=== PATIENT | female | born 1985 | race African-American/Black ===

== ENCOUNTER 2016-10-21 15:25 | Emergency (ER) | payer SELFPAY ==
[~2016-10-21] VITALS: Ht 162.6 cm; Wt 65.8 kg
--- NOTE | 2016-10-21 15:40 | ED Cough/URI ---
General Stated Complaint: COUGH/SOB Source: patient Exam Limitations: no limitations History of Present Illness Time seen by provider: 15:38 Initial Comments To ER with a cough and shortness of breath. She does not have fevers. This is been ongoing for the past few days. She just moved here from [place] and forgot her medications at home. She normally takes prednisone on an as-needed basis, she states, in addition to albuterol plus ipratropium per her nebulizer. She continues to smoke cigars. Timing/Duration: just prior to arrival Severity/Quality: productive cough Associated Symptoms: cough Allergies and Home Medications Allergies Coded Allergies: No Known Drug Allergies (Unverified , 10/21/16) Home Medications Ipratropium/Albuterol Sulfate 3 Ml Ampul.neb, 3 ML IH Q4H PRN for SHORTNESS OF BREATH, (Reported) Constitutional: see HPI, No chills, No fever EENTM: see HPI Respiratory: see HPI, cough, short of breath, wheezing Cardiovascular: no symptoms reported Genitourinary: no symptoms reported Musculoskeletal: no symptoms reported Skin: no symptoms reported Psychiatric/Neurological: No Symptoms Reported Hematologic/Lymphatic: No Symptoms Reported Immunological/Allergic: no symptoms reported Past Xqnawcp-Rsekxh-Nnjnhz Hx Patient Social History Recent Foreign Travel: No Contact w/Someone Who Travel: No Physical Exam Vital Signs Vital Sign - Last 12Hours 10/21/16 15:30 Temp 98.1 Pulse 128 Resp 36 B/P (MAP) 139/98 Pulse Ox 92 O2 Delivery Room Air Capillary Refill : General Appearance: WD/WN, no apparent distress, thin Eyes: Bilateral Eye EOMI, Bilateral Eye Normal Inspection, Bilateral Eye PERRL HEENT: PERRL/EOMI, normal ENT inspection Neck: non-tender, full range of motion Respiratory: no respiratory distress, no accessory muscle use, decreased breath sounds, wheezing Cardiovascular: no murmur, tachycardia Gastrointestinal: normal bowel sounds, non tender, soft Extremities: normal range of motion, non-tender, normal inspection, no pedal edema Neurologic/Psychiatric: alert, normal mood/affect, oriented x 3 Skin: normal color, warm/dry Progress/Results/Core Measures Results/Orders My Orders Orders - SOFIA WARD APRN Albuterol/Ipra Inhalation Soln (Duoneb I (10/21/16 15:45) Prednisone Tablet (Deltasone Tablet) (10/21/16 15:45) Svn Sm Volume Nebulizer Rt-Rfs (10/21/16 15:35) Albuterol/Ipra Inhalation Soln (Duoneb I (10/21/16 15:45) Svn Sm Volume Nebulizer Rt-Rfs (10/21/16 15:38) Medications Given in ED Current Medications Medications Dose Ordered Sig/Delvis Route Start Time Stop Time Status Last Admin Dose Admin Albuterol/ Ipratropium 3 ml ONCE ONCE INH 10/21/16 15:45 10/21/16 15:46 DC 10/21/16 15:48 3 ML Vital Signs/I&O Vital Sign - Last 12Hours 10/21/16 10/21/16 15:30 15:49 Temp 98.1 Pulse 128 Resp 36 B/P (MAP) 139/98 Pulse Ox 92 94 O2 Delivery Room Air Room Air Departure Communication Progress Notes She states that she does have a nebulizer with her. Impression Impression: Primary Impression: Asthma Disposition: 01 HOME, SELF-CARE Condition: Stable Departure-Patient Inst. Decision time for Depature: 15:54 Referrals: NO,LOCAL PHYSICIAN (PCP/Family) Primary Care Physician Patient Instructions: Asthma, Adult (DC) Add. Discharge Instructions: 1. Medication as directed 2. See your doctor next week Scripts Prednisone (Prednisone) 20 Mg Tab 40 MG PO DAILY, #6 TAB Prov: SOFIA WARD APRN 10/21/16 Ipratropium [place] (Ipratropium [place]) 0.2 Mg/1 Ml Solution 0.2 MG IH Q4H Y for WHEEZING, #25 EA Prov: SOFIA WARD APRN 10/21/16 Albuterol Sulfate (Albuterol Sulfate) 2.5 Mg/3 Ml Vial.neb 2.5 MG IH Q4H Y for WHEEZING, #25 EA Prov: SOFIA WARD APRN 10/21/16 SOFIA WARD APRN Oct 21, 2016 15:40
[2016-10-21] MEDS ORDERED: IPRA3AMP IH (15:44)
[2016-10-21] MEDS ORDERED: predniSONE 20 MG TAB PO ONE (15:45)
[2016-10-21] MEDS ORDERED: RT-ALBUTEROL/IPRATROPIUM 3 ML (DUONEB) VIAL INH ONE ×2 (15:45)
[2016-10-21] MEDS ORDERED: PRD20T PO (15:56)
[2016-10-21] MEDS ORDERED: ALBU2.5V4 IH (15:56)
[2016-10-21] MEDS ORDERED: IPRA0.2S51 IH (15:56)
[2016-10-21 16:36] VITALS: BP 122/72
== END 2016-10-21 16:35 | disposition home or self-care (01) ==
LOC: ER 15:28
DX: J45.909 Unspecified asthma, uncomplicated (principal); F17.290 Nicotine dependence, other tobacco product, uncomplicated
CPT/HCPCS: 94640; 99283

== ENCOUNTER 2016-11-10 10:19 | Emergency (ER) | payer OTHER ==
[~2016-11-10] VITALS: Ht 162.6 cm; Wt 63.5 kg
[~2016-11-10 10:19] MED LIST: ALBU2.5V4 IH; IPRA0.2S51 IH; IPRA3AMP IH; PRD20T PO; RT-ALBUTEROL/IPRATROPIUM 3 ML (DUONEB) VIAL ONE
[2016-11-10] MEDS ORDERED: RT-IPRATROPIUM (ATROVENT) 0.5MG/2.5ML AMP IH ONE ×2 (10:29→10:45)
[2016-11-10] MEDS ORDERED: RT-ALBUTEROL SULF 2.5 MG/3 ML PRE-MIX VIAL ONE (10:29)
[2016-11-10] MEDS ORDERED: methylPREDNISolone 125 MG (Solu-MEDROL) VIAL ONE (10:30)
[2016-11-10] MEDS ORDERED: methylPREDNISolone 125 MG (Solu-MEDROL) VIAL IVP ONE (10:45)
[2016-11-10] MEDS ORDERED: RT-ALBUTEROL SULF 2.5 MG/3 ML PRE-MIX VIAL IH ONE (10:45)
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
[2016-11-10 13:05] LABS: BASOPHILS # (AUTO) 0.1 10^3/uL (0.0-0.1); BASOPHILS % (AUTO) 1 % (0-10); EOSINOPHILS # (AUTO) 0.6 10^3/uL (0.0-0.3); EOSINOPHILS % (AUTO) 8 % (0-10); LYMPHOCYTES # (AUTO) 2.5 X 10^3 (1.0-4.0); LYMPHOCYTES % (AUTO) 31 % (12-44); MEAN CORPUSCULAR HEMOGLOBIN 25 PG (25-34); MEAN CORPUSCULAR HGB CONC 32 G/DL (32-36); MEAN CORPUSCULAR VOLUME 79 FL (80-99); MEAN PLATELET VOLUME 9.6 FL (7.4-10.4); MONOCYTES # (AUTO) 0.6 X 10^3 (0.0-1.0); MONOCYTES % (AUTO) 7 % (0-12); NEUTROPHILS # (AUTO) 4.2 X 10^3 (1.8-7.8); NEUTROPHILS % (AUTO) 53 % (42-75); PLATELET COUNT 553 10^3/uL (130-400); RED BLOOD COUNT 4.63 10^6/uL (4.35-5.85); RED CELL DISTRIBUTION WIDTH 16.3 % (10.0-14.5)
[2016-11-10 13:19] LABS: ALANINE AMINOTRANSFERASE 14 U/L (0-55); ALBUMIN 3.8 GM/DL (3.2-4.5); ANION GAP 15 MMOL/L (5-14); ASPARTATE AMINO TRANSFERASE 24 U/L (5-34); BILIRUBIN,TOTAL 0.4 MG/DL (0.1-1.0); BLOOD UREA NITROGEN 8 MG/DL (7-18); BUN/CREATININE RATIO 12; CALCIUM 9.2 MG/DL (8.5-10.1); CARBON DIOXIDE 17 MMOL/L (21-32); CHLORIDE 107 MMOL/L (98-107); CREATININE SERUM 0.68 MG/DL (0.60-1.30); GFR ESTIMATED > 60; GLUCOSE 79 MG/DL (70-105); POTASSIUM 4.7 MMOL/L (3.6-5.0); SODIUM 139 MMOL/L (135-145); TOTAL PROTEIN 7.2 GM/DL (6.4-8.2)
--- NOTE | 2016-11-10 13:25 | Diagnostic Imaging Report ---
EXAMINATION: Chest radiograph, portable AP view. DATE: November 10, 2016 at 1259 hours. INDICATION: 31-year-old female, chest tightness, shortness of breath, cough. COMPARISON: None. FINDINGS: There are chronic appearing deformities of left-sided ribs. Heart size and mediastinal contours are unremarkable. There is no identified pneumothorax. There is no large pleural effusion. There are streaky opacities overlying the medial left lung base. There does appear to be a deformity of the right seventh rib of uncertain exact age. IMPRESSION: 1. Chronic appearing left-sided rib deformities. 2. Deformity of the right seventh rib of uncertain exact age. Recommend correlation for focal tenderness. 3. Nonspecific streaky opacities in the left medial lung base which may relate to scarring, atelectasis, or other alveolar consolidative processes. Comparison with prior imaging if available may be helpful. This is of uncertain exact chronicity. Dictated by: Dictated on workstation # [id number]
[2016-11-10] MEDS ORDERED: PRD20T PO (14:10)
[2016-11-10] MEDS ORDERED: IPRA3AMP IH (14:10)
[2016-11-10] MEDS ORDERED: ALBU2.5V4 IH (14:10)
[2016-11-10] MEDS ORDERED: predniSONE 20 MG TAB PO ONE (14:15)
[2016-11-10] MEDS ORDERED: RT-ALBUTEROL/IPRATROPIUM 3 ML (DUONEB) VIAL INH ONE (14:15)
[2016-11-10 15:17] VITALS: BP 131/80
== END 2016-11-10 15:16 | disposition home or self-care (01) ==
LOC: EDUNIT# 10:19 → ER 10:21
DX: J45.901 Unspecified asthma with (acute) exacerbation (principal); J44.9 Chronic obstructive pulmonary disease, unspecified; F17.290 Nicotine dependence, other tobacco product, uncomplicated; Z87.828 Personal history of other (healed) physical injury and trauma
CPT/HCPCS: 36415; 71010; 80053; 84703; 85025; 94640; 96374; 99283

== ENCOUNTER 2016-11-11 20:53 | Observation (INO) | payer OTHER ==
[~2016-11-11] VITALS: Ht 162.6 cm; Wt 63.5 kg
[~2016-11-11 20:53] MED LIST changes: -RT-ALBUTEROL/IPRATROPIUM 3 ML (DUONEB) VIAL ONE
[2016-11-11] MEDS ORDERED: methylPREDNISolone 125 MG (Solu-MEDROL) VIAL IV STA (21:04)
[2016-11-11] MEDS ORDERED: RT-ALBUTEROL SULF 2.5 MG/3 ML PRE-MIX VIAL ONE (21:05)
[2016-11-11] MEDS ORDERED: RT-ALBUTEROL SULF 2.5 MG/3 ML PRE-MIX VIAL INH STA ×2 (21:09→23:50)
[2016-11-11] MEDS ORDERED: RT-ALBUTEROL/IPRATROPIUM 3 ML (DUONEB) VIAL INH ONE (21:15)
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
[2016-11-11] MEDS: MAGNESIUM 1 GM/100 ML IVPB 100 ML IV SCH ×2 (22:45→22:56)
[2016-11-11] MEDS ORDERED: NS IV 1000 ML 1,000 ML IV ONE (23:50)
[2016-11-11 23:58] LABS: BASOPHILS # (AUTO) 0.1 10^3/uL (0.0-0.1); BASOPHILS % (AUTO) 0 % (0-10); EOSINOPHILS # (AUTO) 0.4 10^3/uL (0.0-0.3); EOSINOPHILS % (AUTO) 2 % (0-10); LYMPHOCYTES # (AUTO) 4.7 X 10^3 (1.0-4.0); LYMPHOCYTES % (AUTO) 32 % (12-44); MEAN CORPUSCULAR HEMOGLOBIN 25 PG (25-34); MEAN CORPUSCULAR HGB CONC 32 G/DL (32-36); MEAN CORPUSCULAR VOLUME 79 FL (80-99); MEAN PLATELET VOLUME 9.4 FL (7.4-10.4); MONOCYTES # (AUTO) 0.8 X 10^3 (0.0-1.0); MONOCYTES % (AUTO) 5 % (0-12); NEUTROPHILS # (AUTO) 8.9 X 10^3 (1.8-7.8); NEUTROPHILS % (AUTO) 60 % (42-75); PLATELET COUNT 614 10^3/uL (130-400); RED CELL DISTRIBUTION WIDTH 16.4 % (10.0-14.5); WHITE BLOOD COUNT 14.7 10^3/uL (4.3-11.0)
[2016-11-12 00:12] LABS: ALANINE AMINOTRANSFERASE 13 U/L (0-55); ALBUMIN 3.9 GM/DL (3.2-4.5); ANION GAP 14 MMOL/L (5-14); ASPARTATE AMINO TRANSFERASE 15 U/L (5-34); BILIRUBIN,TOTAL 0.1 MG/DL (0.1-1.0); BLOOD UREA NITROGEN 11 MG/DL (7-18); BUN/CREATININE RATIO 15; CARBON DIOXIDE 19 MMOL/L (21-32); CHLORIDE 108 MMOL/L (98-107); CREATININE SERUM 0.74 MG/DL (0.60-1.30); GFR ESTIMATED > 60; GLUCOSE 109 MG/DL (70-105); MAGNESIUM 1.8 MG/DL (1.8-2.4); POTASSIUM 3.7 MMOL/L (3.6-5.0); SODIUM 141 MMOL/L (135-145); hs C REACTIVE PROTEIN 2.68 MG/DL (0.00-0.50)
[2016-11-12 00:29] LABS: BAND NEUTROPHILS 1 %; BASOPHILS % (MANUAL) 0 %; EOSINOPHILS % (MANUAL) 0 %; LYMPHOCYTES % (MANUAL) 28 %; NEUTROPHILS % (MANUAL) 65 %; REACTIVE LYMPHOCYTES 4 %
[2016-11-12 01:15] VITALS: BP 147/75
[2016-11-12] MEDS ORDERED: CATHETER FLUSH 10 ML SYR IV PRN (01:30)
[2016-11-12] MEDS ORDERED: ONDANSETRON 4 MG/2 ML (SDV) Z0FRAN IV PRN (01:30)
[2016-11-12] MEDS ORDERED: ACETAMINOPHEN 500 MG TAB (TYLENOL) PO PRN (01:30)
[2016-11-12] MEDS: NS IV 1000 ML 1,000 ML IV SCH ×2 (01:36→14:47)
[2016-11-12] MEDS ORDERED: RT-ALBUTEROL/IPRATROPIUM 3 ML (DUONEB) VIAL ONE (01:39)
[2016-11-12] MEDS: methylPREDNISolone 125 MG (Solu-MEDROL) VIAL IV SCH ×4 (02:57→21:44)
[2016-11-12] MEDS ORDERED: RT-ALBUTEROL/IPRATROPIUM 3 ML (DUONEB) VIAL INH PRN (03:15)
[2016-11-12 04:00] VITALS: BP 109/58
[2016-11-12] MEDS: CATHETER FLUSH 10 ML SYR IV SCH ×3 (06:08→21:44)
[2016-11-12 06:27] LABS: BASOPHILS % (AUTO) 0 % (0-10); EOSINOPHILS % (AUTO) 0 % (0-10); LYMPHOCYTES # (AUTO) 0.5 X 10^3 (1.0-4.0); LYMPHOCYTES % (AUTO) 5 % (12-44); MEAN CORPUSCULAR HEMOGLOBIN 25 PG (25-34); MEAN CORPUSCULAR HGB CONC 31 G/DL (32-36); MEAN CORPUSCULAR VOLUME 79 FL (80-99); MEAN PLATELET VOLUME 9.2 FL (7.4-10.4); MONOCYTES # (AUTO) 0.1 X 10^3 (0.0-1.0); MONOCYTES % (AUTO) 1 % (0-12); NEUTROPHILS # (AUTO) 10.8 X 10^3 (1.8-7.8); NEUTROPHILS % (AUTO) 95 % (42-75); PLATELET COUNT 551 10^3/uL (130-400); RED BLOOD COUNT 3.97 10^6/uL (4.35-5.85); RED CELL DISTRIBUTION WIDTH 16.3 % (10.0-14.5); WHITE BLOOD COUNT 11.4 10^3/uL (4.3-11.0)
[2016-11-12 06:46] LABS: ALANINE AMINOTRANSFERASE 15 U/L (0-55); ALBUMIN 3.7 GM/DL (3.2-4.5); ANION GAP 15 MMOL/L (5-14); ASPARTATE AMINO TRANSFERASE 14 U/L (5-34); BILIRUBIN,TOTAL 0.1 MG/DL (0.1-1.0); BLOOD UREA NITROGEN 9 MG/DL (7-18); BUN/CREATININE RATIO 13; CALCIUM 8.6 MG/DL (8.5-10.1); CARBON DIOXIDE 16 MMOL/L (21-32); CHLORIDE 109 MMOL/L (98-107); GFR ESTIMATED > 60; GLUCOSE 210 MG/DL (70-105); SODIUM 140 MMOL/L (135-145); TOTAL PROTEIN 6.6 GM/DL (6.4-8.2)
[2016-11-12] MEDS: RT-ALBUTEROL/IPRATROPIUM 3 ML (DUONEB) VIAL INH SCH ×5 (06:53→22:34)
[2016-11-12] MEDS: RT-BUDESONIDE NEBS 0.5 MG/2ML (PULMICORT) AMP INH SCH ×2 (06:55→22:34)
[2016-11-12 07:53] VITALS: BP 110/66
[2016-11-12] MEDS ORDERED: IBUP-30 PO (08:39)
--- NOTE | 2016-11-12 08:47 | Diagnostic Imaging Report ---
INDICATION: Shortness of breath. Asthma. COMPARISON: 11/10/2016. FINDINGS: Chronic deformity of the left ribs is again noted. The heart is not enlarged. The lungs are well-aerated. There does not appear to be significant air trapping. There are no consolidated infiltrates. No segmental atelectasis is noted. No hilar adenopathy. No pneumothorax or pleural effusion. IMPRESSION: 1. Chronic rib changes on the left. 2. No significant change has occurred since the previous exam. Dictated by: Dictated on workstation # [id number]
[2016-11-12] MEDS ORDERED: IPRA0.2S51 IH (09:27)
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
[2016-11-12] MEDS: guaiFENesin/DM (ROBITUSSIN DM) 10 ML UDC PO PRN (12:34)
[2016-11-12 12:36] VITALS: BP 117/63
[2016-11-12 15:49] VITALS: BP 125/78
[2016-11-12 19:38] VITALS: BP 128/64
[2016-11-13 00:44] VITALS: BP_SYST 122; BP_SYST 139; BP_DIAS 61; BP_DIAS 71
[2016-11-13] MEDS: RT-ALBUTEROL/IPRATROPIUM 3 ML (DUONEB) VIAL INH SCH ×6 (02:58→21:31)
[2016-11-13 04:00] VITALS: BP 100/54
[2016-11-13] MEDS: NS IV 1000 ML 1,000 ML IV SCH (04:17)
[2016-11-13] MEDS: CATHETER FLUSH 10 ML SYR IV SCH ×3 (05:07→22:16)
[2016-11-13] MEDS: methylPREDNISolone 125 MG (Solu-MEDROL) VIAL IV SCH ×3 (05:07→22:16)
[2016-11-13 07:37] VITALS: BP 117/63
[2016-11-13] MEDS: RT-BUDESONIDE NEBS 0.5 MG/2ML (PULMICORT) AMP INH SCH ×2 (07:58→21:31)
--- NOTE | 2016-11-13 08:43 | Progress Note-Hospitalist ---
Subjective HPI/CC On Admission Date Seen by Provider: Nov 13, 2016 Time Seen by Provider: 08:30 Mrs. Mcdaniels 31-year-old white female with asthma who originally presented emergency room on the with a 2 day history of increased She denied any sore throat symptoms chills fever or sputum production. She was given a prednisone taper and Combivent inhaler and discharged after improvement. She did well until last night when she had paroxysms of cough with wheezing and shortness of breath. She presented to the emergency r in moderate respiratory distress. After IV Solu-Medrol and a prolonged beta agonist treatment she is feeling better but still has significant wheezing She has not been able to afford inhaler therapy and continues to smoke one cigar daily. She has a previous 42-juvh-lolx smoking history but quit cigarettes a year ago. Past exacerbations have not required ventilatory support Subjective/Events-last exam she reports she is breathing easier without chest pain. She's had no sputum production and said no chills or fever. Objective Exam Vital Signs Vital Sign - Last 12Hours 11/11/16 11/11/16 11/12/16 21:00 21:17 06:53 Temp 98.9 Pulse 122 Resp 32 B/P (MAP) 133/97 Pulse Ox 98 O2 Delivery Nasal Cannula O2 Flow Rate 2.00 FiO2 35 Capillary Refill : Less Than 3 Seconds General Appearance: No Apparent Distress, WD/WN Respiratory: No Accessory Muscle Use, No Respiratory Distress, Other (diffuse inspiratory and expiratory wheezing is noted still) Cardiovascular: Regular Rate, Rhythm, No Edema, No Gallop, No JVD, No Murmur Assessment/Plan Assessment and Plan Assess & Plan/Chief Complaint 1. Acute asthma exacerbation aggravated by tobaccoism without evidence for infection at this time. Continue IV Solu-Medrol and bronchodilator therapy. There has been some clinical improvement over the past 24 hours. KAILEE WAITE MD Nov 13, 2016 08:43
[2016-11-13 12:00] VITALS: BP 117/59
[2016-11-13] MEDS: guaiFENesin/DM (ROBITUSSIN DM) 10 ML UDC PO PRN ×2 (14:15→22:19)
[2016-11-13 16:00] VITALS: BP 115/55
[2016-11-14] VITALS: BP 123/71
[2016-11-14] MEDS: RT-ALBUTEROL/IPRATROPIUM 3 ML (DUONEB) VIAL INH SCH ×6 (02:29→22:24)
[2016-11-14] MEDS: methylPREDNISolone 125 MG (Solu-MEDROL) VIAL IV SCH ×4 (05:52→22:18)
[2016-11-14] MEDS: CATHETER FLUSH 10 ML SYR IV SCH ×4 (05:53→22:18)
[2016-11-14] MEDS: RT-BUDESONIDE NEBS 0.5 MG/2ML (PULMICORT) AMP INH SCH ×2 (06:57→19:07)
[2016-11-14 08:00] VITALS: BP 120/68
--- NOTE | 2016-11-14 08:43 | Progress Note-Hospitalist ---
Subjective HPI/CC On Admission Date Seen by Provider: Nov 14, 2016 Time Seen by Provider: 08:45 Mrs. Mcdaniels 31-year-old white female with asthma who originally presented emergency room on the with a 2 day history of increased She denied any sore throat symptoms chills fever or sputum production. She was given a prednisone taper and Combivent inhaler and discharged after improvement. She did well until last night when she had paroxysms of cough with wheezing and shortness of breath. She presented to the emergency r in moderate respiratory distress. After IV Solu-Medrol and a prolonged beta agonist treatment she is feeling better but still has significant wheezing She has not been able to afford inhaler therapy and continues to smoke one cigar daily. She has a previous 29-arov-srjn smoking history but quit cigarettes a year ago. Past exacerbations have not required ventilatory support Subjective/Events-last exam Mrs. Mcdaniels ports less shortness of breath but still has significant wheezing and intermittent cough nonproductive. She denies chills or fever. Objective Exam Vital Signs Vital Sign - Last 12Hours 11/11/16 11/11/16 11/12/16 21:00 21:17 06:53 Temp 98.9 Pulse 122 Resp 32 B/P (MAP) 133/97 Pulse Ox 98 O2 Delivery Nasal Cannula O2 Flow Rate 2.00 FiO2 35 Capillary Refill : Less Than 3 Seconds General Appearance: No Apparent Distress Respiratory: No Accessory Muscle Use, No Respiratory Distress, Other ( Increased air movement but they're still significant inspiratory and expiratory wheezing without stridor.) Cardiovascular: Regular Rate, Rhythm, No Edema, No Gallop, No JVD, No Murmur Assessment/Plan Assessment and Plan Assess & Plan/Chief Complaint 1. Acute asthma exacerbation aggravated by tobaccoism without evidence for infection at this time. Continue IV Solu-Medrol and bronchodilator therapy. There has been some clinical improvement over the past 24 hours but the patient still has significant wheezing. KAILEE WAITE MD Nov 14, 2016 08:43
[2016-11-14] MEDS: guaiFENesin/DM (ROBITUSSIN DM) 10 ML UDC PO PRN (13:43)
[2016-11-14 16:00] VITALS: BP 117/61
[2016-11-15] VITALS: BP 102/62
[2016-11-15] MEDS: RT-ALBUTEROL/IPRATROPIUM 3 ML (DUONEB) VIAL INH SCH ×6 (02:00→20:35)
[2016-11-15] MEDS: methylPREDNISolone 125 MG (Solu-MEDROL) VIAL IV SCH ×3 (05:24→21:38)
[2016-11-15] MEDS: CATHETER FLUSH 10 ML SYR IV SCH ×3 (05:24→21:39)
[2016-11-15] MEDS: RT-BUDESONIDE NEBS 0.5 MG/2ML (PULMICORT) AMP INH SCH ×2 (06:49→18:25)
[2016-11-15 08:00] VITALS: BP 106/55
--- NOTE | 2016-11-15 13:07 | Progress Note-Hospitalist ---
Subjective HPI/CC On Admission Date Seen by Provider: Nov 15, 2016 Time Seen by Provider: 12:30 Mrs. Mcdaniels 31-year-old white female with asthma who originally presented emergency room on the with a 2 day history of increased She denied any sore throat symptoms chills fever or sputum production. She was given a prednisone taper and Combivent inhaler and discharged after improvement. She did well until last night when she had paroxysms of cough with wheezing and shortness of breath. She presented to the emergency r in moderate respiratory distress. After IV Solu-Medrol and a prolonged beta agonist treatment she is feeling better but still has significant wheezing She has not been able to afford inhaler therapy and continues to smoke one cigar daily. She has a previous 60-kzjy-sfwk smoking history but quit cigarettes a year ago. Past exacerbations have not required ventilatory support Subjective/Events-last exam feeling better but still has significant wheezing. Cough intermittently productive now of clear sputum no blood noted. Objective Exam Vital Signs Vital Sign - Last 12Hours 11/11/16 11/11/16 11/12/16 21:00 21:17 06:53 Temp 98.9 Pulse 122 Resp 32 B/P (MAP) 133/97 Pulse Ox 98 O2 Delivery Nasal Cannula O2 Flow Rate 2.00 FiO2 35 Capillary Refill : Less Than 3 Seconds General Appearance: No Apparent Distress, WD/WN Respiratory: No Accessory Muscle Use, No Respiratory Distress, Other ([employer] next 3 wheezing still noted with improved air movement) Cardiovascular: Regular Rate, Rhythm, No Edema, No Gallop, No JVD, No Murmur, Normal Peripheral Pulses Assessment/Plan Assessment and Plan Assess & Plan/Chief Complaint 1. Acute asthma exacerbation aggravated by tobaccoism without evidence for infection at this time. Continue IV Solu-Medrol and bronchodilator therapy. There has been some clinical improvement over the past 24 hours but the patient still has significant wheezing. KAILEE WAITE MD Nov 15, 2016 13:07
[2016-11-15] MEDS ORDERED: PRD20T PO (13:16)
[2016-11-15] MEDS ORDERED: FLUT1DIS28 IH (13:16)
[2016-11-15] MEDS ORDERED: IPRA0.2S51 IH (13:16)
[2016-11-15] MEDS: NICOTINE 21 MG (NICODERM) PATCH TD SCH (15:49)
[2016-11-15 16:17] VITALS: BP 125/76
[2016-11-15] MEDS: guaiFENesin/DM (ROBITUSSIN DM) 10 ML UDC PO PRN (21:43)
[2016-11-15 23:40] VITALS: BP 153/91
[2016-11-16] MEDS: RT-ALBUTEROL/IPRATROPIUM 3 ML (DUONEB) VIAL INH SCH ×5 (02:09→20:09)
[2016-11-16] MEDS: methylPREDNISolone 125 MG (Solu-MEDROL) VIAL IV SCH ×3 (05:49→21:17)
[2016-11-16] MEDS: CATHETER FLUSH 10 ML SYR IV SCH ×3 (06:41→21:26)
[2016-11-16] MEDS: RT-BUDESONIDE NEBS 0.5 MG/2ML (PULMICORT) AMP INH SCH ×2 (06:54→20:09)
[2016-11-16 08:26] VITALS: BP 129/71
[2016-11-16] MEDS: NICOTINE 21 MG (NICODERM) PATCH TD SCH ×2 (09:20→09:21)
--- NOTE | 2016-11-16 10:07 | Progress Note-Hospitalist ---
Subjective HPI/CC On Admission Date Seen by Provider: Nov 16, 2016 Time Seen by Provider: 10:00 Mrs. Mcdaniels 31-year-old white female with asthma who originally presented emergency room on the with a 2 day history of increased She denied any sore throat symptoms chills fever or sputum production. She was given a prednisone taper and Combivent inhaler and discharged after improvement. She did well until last night when she had paroxysms of cough with wheezing and shortness of breath. She presented to the emergency r in moderate respiratory distress. After IV Solu-Medrol and a prolonged beta agonist treatment she is feeling better but still has significant wheezing She has not been able to afford inhaler therapy and continues to smoke one cigar daily. She has a previous 63-gxkl-ixzc smoking history but quit cigarettes a year ago. Past exacerbations have not required ventilatory support Subjective/Events-last exam not coughing as much but still has significant wheezing. When asked about previous asthma exacerbations Of Taken As Long As 9 Days of Hospitalization before She Is Ready for Discharge. She's Had No Chills Fever or Purulent Sputum Production. Objective Exam Vital Signs Vital Sign - Last 12Hours 11/11/16 11/11/16 11/12/16 21:00 21:17 06:53 Temp 98.9 Pulse 122 Resp 32 B/P (MAP) 133/97 Pulse Ox 98 O2 Delivery Nasal Cannula O2 Flow Rate 2.00 FiO2 35 Capillary Refill : Less Than 3 Seconds General Appearance: No Apparent Distress, WD/WN Respiratory: No Accessory Muscle Use, No Respiratory Distress, Other (diffuse inspiratory and expiratory wheezing throughout persists) Cardiovascular: Regular Rate, Rhythm, No Edema, No Gallop, No JVD, No Murmur Assessment/Plan Assessment and Plan Assess & Plan/Chief Complaint 1. Acute asthma exacerbation aggravated by tobaccoism without evidence for infection at this time. Continue IV Solu-Medrol and bronchodilator therapy. There has been some clinical improvement over the past 24 hours but the patient still has significant wheezing. she is likely a slow steroid responder and was warned that it may be another protracted hospital stay as several of her other asthma exacerbations have been. She is not yet ready to consider Solu-Medrol taper. 2. 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 Will initiate Ambien 5 mg at at bedtime when necessary KAILEE WAITE MD Nov 16, 2016 10:07
[2016-11-16] MEDS ORDERED: ZOLPIDEM 5 MG (AMBIEN) TAB PO PRN (10:15)
[2016-11-16] MEDS: guaiFENesin/DM (ROBITUSSIN DM) 10 ML UDC PO PRN (13:10)
[2016-11-16 15:05] VITALS: BP 129/71
[2016-11-16 16:52] VITALS: BP 113/66
[2016-11-17] VITALS: BP 113/58
[2016-11-17] MEDS: RT-ALBUTEROL/IPRATROPIUM 3 ML (DUONEB) VIAL INH SCH ×3 (03:21→13:56)
[2016-11-17] MEDS: methylPREDNISolone 125 MG (Solu-MEDROL) VIAL IV SCH ×2 (05:25→14:03)
[2016-11-17] MEDS: CATHETER FLUSH 10 ML SYR IV SCH ×2 (05:25→14:03)
[2016-11-17] MEDS: RT-BUDESONIDE NEBS 0.5 MG/2ML (PULMICORT) AMP INH SCH (07:41)
[2016-11-17 08:43] VITALS: BP 141/97
[2016-11-17] MEDS ORDERED: NICOTINE PATCH REMOVAL TP SCH (08:59)
[2016-11-17] MEDS: NICOTINE 21 MG (NICODERM) PATCH TD SCH (09:02)
[2016-11-17] MEDS ORDERED: FLUT1AER IH (12:18)
--- NOTE | 2016-11-17 12:25 | Discharge Summary-Hospitalist ---
Diagnosis/Chief Complaint Date of Admission Nov 12, 2016 at 01:16 Date of Discharge Discharge Date: Nov 17, 2016 Admission Diagnosis 1. Acute asthma exacerbation aggravated by tobaccoism and inability to afford medication. We'll continue IV Solu-Medrol and bronchodilator therapy. Discussed the need for follow-up with [facility] being a good option considering her financial status. In the past patient has required several days of IV anti-inflammatory therapy before her reactive airways are stabilized and I would expect the same. There is no evidence to suggest an underlying infectious etiology. While she has been told she has COPD she is not aware of any pulmonary function studies to confirm this. When the patient is back to baseline discussed recommendation for at least baseline office PFTs. Discussed the likelihood that her cigars were major contributing factor in her need for hospitalization and current asthma exacerbation. She is strongly advised to quit smoking altogether. Discharge Diagnosis 1. Acute asthma exacerbation aggravated by tobaccoism without evidence for infection at this time. Continue IV Solu-Medrol and bronchodilator therapy. There has been some clinical improvement over the past 24 hours but the patient still has significant wheezing. she is likely a slow steroid responder and was warned that it may be another protracted hospital stay as several of her other asthma exacerbations have been. She is not yet ready to consider Solu-Medrol taper. 2. 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 Will initiate Ambien 5 mg at at bedtime when necessary Reason Hospital Visit/Course Mrs. Mcdaniels 31-year-old white female with asthma who originally presented emergency room on the with a 2 day history of increased She denied any sore throat symptoms chills fever or sputum production. She was given a prednisone taper and Combivent inhaler and discharged after improvement. She did well until last night when she had paroxysms of cough with wheezing and shortness of breath. She presented to the emergency r in moderate respiratory distress. After IV Solu-Medrol and a prolonged beta agonist treatment she is feeling better but still has significant wheezing She has not been able to afford inhaler therapy and continues to smoke one cigar daily. She has a previous 42-yvah-aqkc smoking history but quit cigarettes a year ago. Past exacerbations have not required ventilatory support. Mrs. Mcdaniels was admitted and started on high-dose Solu-Medrol with DuoNeb breathing treatments. She had slow improvement in symptoms. On the day of her discharge she still had some mild wheezing but was adamant about discharge. She promised she would get up her one cigar per day and did not think this was going to be difficult. We did point out high likelihood of exacerbation of she goes back to any smoking at all especially over the next week or 2. She is to call [facility] tomorrow to obtain an appointment as she has no healthcare for medication coverage. health services director was able to get prednisone and DuoNeb for her Zentric machine. She was discharged on 40 mg of prednisone for 5 days 20 mg of prednisone for 5 days then off. She'll continue DuoNeb breathing treatments every 4-6 hours as needed. She was given 2 Breo sample inhalers and instructed in use. She was given her first puff today and tolerated it without difficulty. This will be enough for 4 weeks of therapy. Discussed the need that she should continue daily anti-inflammatory therapy of some form for symptom relief and acute asthmatic exacerbation prevention. Discharge Summary Discharge Physical Examination Allergies: Coded Allergies: No Known Drug Allergies (Unverified , 10/21/16) Vitals & I&Os Vital Signs Date Time Temp Pulse Resp B/P (MAP) Pulse Ox O2 Delivery O2 Flow Rate FiO2 11/17/16 09:00 Nasal Cannula 0.50 11/17/16 08:43 98.3 96 18 141/97 96 11/16/16 15:05 25 Discharge Home Medications: Active Scripts Active Breo Ellipta 100-25 Mcg INH (Fluticasone/Vilanterol) 1 Each Blst.w.dev 1 Each IH DAILY Prednisone 20 Mg Tab 20 Mg PO DAILY 10 Days Ipratropium [place] 0.2 Mg/1 Ml Solution 0.2 Mg IH Q4H PRN Reported Advil (Ibuprofen) 200 Mg Tablet 400-600 Mg PO Q6H PRN Instructions to patient/family Please see electonic discharge instructions given to patient. Clinical Quality Measures DVT/VTE Risk/Contraindication: Risk Factor Score Per Nursin RFS Level Per Nursing on Admit: 1=Low/No VTE PPX KAILEE WAITE MD Nov 17, 2016 12:25
[2016-11-17 15:06] VITALS: BP_SYST 141
== END 2016-11-17 12:18 | disposition home or self-care (01) ==
LOC: EDUNIT# 20:53 → ER 20:54 → UNDOADMOB 11-12 00:10 → 4TH 11-12 00:10
PROVIDERS: ADMIT Internal Medicine; ATTEND Internal Medicine
DX: J45.902 Unspecified asthma with status asthmaticus (principal); F17.290 Nicotine dependence, other tobacco product, uncomplicated; F17.211 Nicotine dependence, cigarettes, in remission
CPT/HCPCS: 36415; 71010; 80053; 83735; 85007; 85025; 85027; 86141; 94010; 94640; 94760; 96365; 96375; G0378

== ENCOUNTER 2016-12-24 09:45 | Emergency (ER) | payer SELFPAY ==
[~2016-12-24] VITALS: Ht 162.6 cm; Wt 65.8 kg
[~2016-12-24 09:45] MED LIST changes: +FLUT1AER IH; +FLUT1DIS28 IH; +IBUP-30 PO; +RT-ALBUTEROL/IPRATROPIUM 3 ML (DUONEB) VIAL ONE
[2016-12-24] MEDS ORDERED: RT-IPRATROPIUM (ATROVENT) 0.5MG/2.5ML AMP IH ONE ×2 (09:49→10:00)
[2016-12-24] MEDS ORDERED: RT-ALBUTEROL SULF 2.5 MG/3 ML PRE-MIX VIAL ONE (09:49)
[2016-12-24] MEDS ORDERED: RT-ALBUTEROL SULF 2.5 MG/3 ML PRE-MIX VIAL INH STA (09:54)
[2016-12-24] MEDS ORDERED: methylPREDNISolone 125 MG (Solu-MEDROL) VIAL IV STA (09:54)
[2016-12-24 10:08] LABS: BASOPHILS # (AUTO) 0.1 10^3/uL (0.0-0.1); BASOPHILS % (AUTO) 1 % (0-10); EOSINOPHILS # (AUTO) 0.5 10^3/uL (0.0-0.3); EOSINOPHILS % (AUTO) 3 % (0-10); LYMPHOCYTES # (AUTO) 4.3 X 10^3 (1.0-4.0); LYMPHOCYTES % (AUTO) 29 % (12-44); MEAN CORPUSCULAR HEMOGLOBIN 27 PG (25-34); MEAN CORPUSCULAR HGB CONC 33 G/DL (32-36); MEAN CORPUSCULAR VOLUME 81 FL (80-99); MEAN PLATELET VOLUME 8.6 FL (7.4-10.4); MONOCYTES # (AUTO) 1.4 X 10^3 (0.0-1.0); MONOCYTES % (AUTO) 9 % (0-12); NEUTROPHILS # (AUTO) 8.7 X 10^3 (1.8-7.8); NEUTROPHILS % (AUTO) 58 % (42-75); PLATELET COUNT 570 10^3/uL (130-400); RED BLOOD COUNT 4.25 10^6/uL (4.35-5.85); RED CELL DISTRIBUTION WIDTH 16.4 % (10.0-14.5)
[2016-12-24 10:28] LABS: ALANINE AMINOTRANSFERASE 38 U/L (0-55); ALBUMIN 3.8 GM/DL (3.2-4.5); ANION GAP 14 MMOL/L (5-14); ASPARTATE AMINO TRANSFERASE 37 U/L (5-34); BILIRUBIN,TOTAL 0.2 MG/DL (0.1-1.0); BLOOD UREA NITROGEN 11 MG/DL (7-18); BUN/CREATININE RATIO 14; CARBON DIOXIDE 19 MMOL/L (21-32); CHLORIDE 108 MMOL/L (98-107); CREATININE SERUM 0.78 MG/DL (0.60-1.30); GFR ESTIMATED > 60; GLUCOSE 81 MG/DL (70-105); MAGNESIUM 2.1 MG/DL (1.8-2.4); POTASSIUM 4.1 MMOL/L (3.6-5.0); SODIUM 141 MMOL/L (135-145); TOTAL PROTEIN 6.7 GM/DL (6.4-8.2)
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
[2016-12-24 10:41] LABS: LYMPHOCYTES % (MANUAL) 29 %; NEUTROPHILS % (MANUAL) 60 %
[2016-12-24 10:42] LABS: ANISOCYTOSIS SLIGHT; BASOPHILS % (MANUAL) 1 %; EOSINOPHILS % (MANUAL) 3 %; HYPOCHROMASIA SLIGHT; POIKILOCYTOSIS SLIGHT
[2016-12-24] MEDS ORDERED: PRD20T PO (11:22)
[2016-12-24 11:28] VITALS: BP 129/86
== END 2016-12-24 11:28 | disposition home or self-care (01) ==
LOC: EDUNIT# 09:45 → ER 09:48
DX: J45.901 Unspecified asthma with (acute) exacerbation (principal); J44.9 Chronic obstructive pulmonary disease, unspecified; Z87.828 Personal history of other (healed) physical injury and trauma
CPT/HCPCS: 36415; 71010; 80053; 83735; 85007; 85027; 94640; 96374

== ENCOUNTER 2017-01-28 18:50 | Observation (INO) | payer OTHER ==
[~2017-01-28] VITALS: Ht 162.6 cm; Wt 65.8 kg
[~2017-01-28 18:50] MED LIST changes: -RT-ALBUTEROL/IPRATROPIUM 3 ML (DUONEB) VIAL ONE
[2017-01-28] MEDS ORDERED: RT-ALBUTEROL SULF 2.5 MG/3 ML PRE-MIX VIAL ONE (18:56)
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
[2017-01-28] MEDS ORDERED: methylPREDNISolone 125 MG (Solu-MEDROL) VIAL IVP ONE (19:15)
[2017-01-28] MEDS ORDERED: RT-ALBUTEROL/IPRATROPIUM 3 ML (DUONEB) VIAL INH ONE (19:15)
[2017-01-28] MEDS ORDERED: RT-ALBUTEROL SULF 2.5 MG/3 ML PRE-MIX VIAL IH SCH (19:15)
--- NOTE | 2017-01-28 19:27 | Diagnostic Imaging Report ---
INDICATION: Shortness of air for 3 days COMPARISON STUDY: Chest from December the . FINDINGS: AP view of the chest demonstrates resolution of the left upper lobe atelectasis. Lungs are now clear. Multiple healed left rib fractures are again identified. Heart size and vascularity are normal. IMPRESSION: The atelectasis in left upper lobe has cleared. No acute findings are present. Dictated by: Dictated on workstation # [id number]
[2017-01-28 19:38] LABS: BASOPHILS # (AUTO) 0.1 10^3/uL (0.0-0.1); BASOPHILS % (AUTO) 1 % (0-10); EOSINOPHILS # (AUTO) 0.5 10^3/uL (0.0-0.3); EOSINOPHILS % (AUTO) 5 % (0-10); LYMPHOCYTES # (AUTO) 3.4 X 10^3 (1.0-4.0); LYMPHOCYTES % (AUTO) 39 % (12-44); MEAN CORPUSCULAR HEMOGLOBIN 26 PG (25-34); MEAN CORPUSCULAR HGB CONC 33 G/DL (32-36); MEAN CORPUSCULAR VOLUME 80 FL (80-99); MEAN PLATELET VOLUME 8.9 FL (7.4-10.4); MONOCYTES # (AUTO) 0.9 X 10^3 (0.0-1.0); MONOCYTES % (AUTO) 11 % (0-12); NEUTROPHILS # (AUTO) 3.9 X 10^3 (1.8-7.8); NEUTROPHILS % (AUTO) 44 % (42-75); PLATELET COUNT 541 10^3/uL (130-400); RED BLOOD COUNT 4.47 10^6/uL (4.35-5.85); RED CELL DISTRIBUTION WIDTH 15.8 % (10.0-14.5); WHITE BLOOD COUNT 8.7 10^3/uL (4.3-11.0)
[2017-01-28 19:52] LABS: ANION GAP 11 MMOL/L (5-14); BLOOD UREA NITROGEN 12 MG/DL (7-18); BUN/CREATININE RATIO 17; CALCIUM 8.6 MG/DL (8.5-10.1); CARBON DIOXIDE 18 MMOL/L (21-32); CHLORIDE 107 MMOL/L (98-107); GFR ESTIMATED > 60; GLUCOSE 96 MG/DL (70-105); SODIUM 136 MMOL/L (135-145)
[2017-01-28] MEDS: MAGNESIUM 1 GM/100 ML IVPB 100 ML IV SCH (20:42)
[2017-01-28] MEDS ORDERED: LACTATED RINGERS 1,000 ML IV ONE (22:03)
[2017-01-28] MEDS ORDERED: ONDANSETRON 4 MG/2 ML (SDV) Z0FRAN IV PRN (22:15)
[2017-01-28 22:48] VITALS: BP 101/65
[2017-01-28] MEDS: LACTATED RINGERS 1,000 ML IV SCH (23:15)
[2017-01-29 00:35] VITALS: BP 101/65
[2017-01-29] MEDS: methylPREDNISolone 125 MG (Solu-MEDROL) VIAL IV SCH ×3 (03:32→18:23)
[2017-01-29] MEDS ORDERED: RT-ALBUTEROL/IPRATROPIUM 3 ML (DUONEB) VIAL INH PRN (04:30)
[2017-01-29 04:38] VITALS: BP 102/62
[2017-01-29] MEDS: RT-ALBUTEROL/IPRATROPIUM 3 ML (DUONEB) VIAL INH SCH ×2 (07:05→10:57)
[2017-01-29 08:30] VITALS: BP 112/73
[2017-01-29] MEDS: LACTATED RINGERS 1,000 ML IV SCH (09:09)
[2017-01-29] MEDS ORDERED: IPRA3AMP INH (09:11)
[2017-01-29] MEDS ORDERED: ALBU2.5V4 NEB (09:11)
[2017-01-29] MEDS ORDERED: IPRA0.2S51 NEB (09:17)
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
[2017-01-29] MEDS ORDERED: INFLUENZA TRIvalent 2017-2018 0.5 ML/45 MCG SYR IM ONE (11:00)
[2017-01-29] MEDS ORDERED: ENOXAPARIN 40 MG/0.4 ML (LOVENOX) SYR SC SCH (11:12)
[2017-01-29 12:30] VITALS: BP 125/79
[2017-01-29] MEDS: RT-ALBUTEROL SULF 2.5 MG/3 ML PRE-MIX VIAL IH SCH ×2 (15:27→19:33)
[2017-01-29] MEDS ORDERED: RT-ALBUTEROL SULF 2.5 MG/3 ML PRE-MIX VIAL IH PRN (15:30)
[2017-01-29 16:00] VITALS: BP 110/72
[2017-01-29] MEDS: RT-FLUTICASONE 110 MCG (FLOVENT) PER PUFF INH SCH (19:33)
[2017-01-29 20:04] VITALS: BP 126/58
[2017-01-29] MEDS ORDERED: MONTELUKAST 10 MG (SINGULAIR) TAB PO SCH (21:00)
[2017-01-30 00:16] VITALS: BP 118/56
[2017-01-30] MEDS: methylPREDNISolone 125 MG (Solu-MEDROL) VIAL IV SCH (02:29)
[2017-01-30 04:29] VITALS: BP 111/57
[2017-01-30] MEDS: RT-FLUTICASONE 110 MCG (FLOVENT) PER PUFF INH SCH (06:51)
[2017-01-30] MEDS: RT-ALBUTEROL SULF 2.5 MG/3 ML PRE-MIX VIAL IH SCH ×2 (06:51→10:33)
[2017-01-30 08:30] VITALS: BP 104/54
[2017-01-30] MEDS ORDERED: PRED10TA22 PO (09:41)
[2017-01-30] MEDS ORDERED: ALBU2.5V4 NEB (09:41)
[2017-01-30] MEDS ORDERED: FLUT1DIS26 IH (09:41)
[2017-01-30] MEDS ORDERED: IPRA0.2S51 NEB (09:41)
[2017-01-30] MEDS ORDERED: MONT10TA24 PO (09:41)
--- NOTE | 2017-01-30 09:54 | Discharge Summary-Hospitalist ---
Diagnosis/Chief Complaint Date of Admission Jan 28, 2017 at 21:20 Date of Discharge Discharge Date: Jan 30, 2017 Admission Diagnosis Status Asthmaticus Discharge Diagnosis (1) Status asthmaticus Status: Resolved Assessment & Plan: Likely has under controlled mild persistent asthma Continue Steroids- transition to prednisone taper at home DuoNebs scheduled and prn Cannot afford Flovent, will do Advair as SW has coupon Marley Discussed need for PCP for routine care for asthma, appt made with [facility] on 03/11 (2) Thrombocytosis Status: Chronic Assessment & Plan: Likely reactive as only studies done during acute illness Will need follow up as outpatient (3) Prophylactic measure Assessment & Plan: Saline Lock Regular Diet Lovenox Discharge Summary Discharge Physical Examination Allergies: Coded Allergies: No Known Drug Allergies (Unverified , 10/21/16) Vitals & I&Os Vital Signs Date Time Temp Pulse Resp B/P (MAP) Pulse Ox O2 Delivery O2 Flow Rate FiO2 01/30/17 08:30 97.8 62 18 104/54 97 Room Air 01/28/17 22:48 21 Hospital Course Pt is a 31yoF with a PMH of poorly controlled asthma who presented to the Er in status asthmaticus and was admitted for further treatment. She responded to magnesium, IV steroids, scheduled Duonebs, and was started on a controller inhaler and Singulair. Symptoms improved dramatically and she was discharged home on Advair, albuterol, and Singulair. Discharge Home Medications: Active Scripts Active Prednisone 10 Mg Tab.ds.pk 10 Mg PO DAILY Take 6 tabs(60mg)daily,decrease by 1 tab(10MG)daily. Advair 250-50 Diskus (Fluticasone/Salmeterol) 1 Each Blst.w.dev 1 Each IH BID Montelukast Sodium 10 Mg Tablet 10 Mg PO HS Ipratropium [place] 0.2 Mg/1 Ml Solution 0.2 Mg NEB Q4H PRN Albuterol Sulfate 2.5 Mg/3 Ml Vial.neb 2.5 Mg NEB Q4H PRN Reported Advil (Ibuprofen) 200 Mg Tablet 600 Mg PO Q6H PRN Instructions to patient/family Please see electronic discharge instructions given to patient. Clinical Quality Measures DVT/VTE Risk/Contraindication: RFS Level Per Nursing on Admit: 0=No Risk/No VTE PPX Copy Copies To 1: [facility] Problem Qualifiers (1) Status asthmaticus: Asthma severity: mild Asthma persistence: persistent Qualified Codes: J45.32 - Mild persistent asthma with status asthmaticus MOIRA DAHL MD Jan 30, 2017 09:53
[2017-01-30 11:18] VITALS: BP 104/54
== END 2017-01-30 09:42 | disposition home or self-care (01) ==
LOC: EDUNIT# 18:50 → ER 18:51 → UNDOADMOB 21:08 → 4TH 21:08
PROVIDERS: ADMIT Internal Medicine; ATTEND Internal Medicine
DX: J45.902 Unspecified asthma with status asthmaticus (principal); D47.3 Essential (hemorrhagic) thrombocythemia; Z87.891 Personal history of nicotine dependence
CPT/HCPCS: 36415; 71010; 80048; 83735; 84703; 85025; 94640; 94760; G0378

== ENCOUNTER 2017-03-19 07:39 | Emergency (ER) | payer SELFPAY ==
[~2017-03-19] VITALS: Ht 162.6 cm; Wt 65.8 kg
[~2017-03-19 07:39] MED LIST changes: +ALBU2.5V4 NEB; +FLUT1DIS26 IH; +IPRA0.2S51 NEB; +IPRA3AMP INH; +MONT10TA24 PO; +PRED10TA22 PO
[2017-03-19] MEDS ORDERED: AMOX500C2 PO (07:58)
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
[2017-03-19] MEDS ORDERED: LIDOCAINE 2% VISCOUS 15 ML UDC PO ONE (08:00)
[2017-03-19] MEDS ORDERED: KETOROLAC 30 MG/ML VIAL IM ONE (08:00)
[2017-03-19] MEDS ORDERED: IPRA3AMP IH (08:10)
[2017-03-19 08:23] VITALS: BP 146/99
== END 2017-03-19 08:23 | disposition home or self-care (01) ==
LOC: EDUNIT# 07:39 → ER 07:41
DX: K04.7 Periapical abscess without sinus (principal); J44.9 Chronic obstructive pulmonary disease, unspecified; Z87.891 Personal history of nicotine dependence; Z87.828 Personal history of other (healed) physical injury and trauma
CPT/HCPCS: 99282

== ENCOUNTER 2017-05-09 17:39 | Emergency (ER) | payer SELFPAY ==
[~2017-05-09] VITALS: Ht 162.6 cm; Wt 63.5 kg
[~2017-05-09 17:39] MED LIST changes: +AMOX500C2 PO
[2017-05-09] MEDS ORDERED: RT-ALBUTEROL/IPRATROPIUM 3 ML (DUONEB) VIAL INH ONE (18:45)
[2017-05-09] MEDS ORDERED: RT-ALBUTEROL SULF 2.5 MG/3 ML PRE-MIX VIAL INH STA ×2 (18:51→19:01)
[2017-05-09] MEDS ORDERED: RT-ALBUTEROL SULF 2.5 MG/3 ML PRE-MIX VIAL ONE (18:52)
[2017-05-09] MEDS ORDERED: predniSONE 20 MG TAB PO ONE (19:00)
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
[2017-05-09] MEDS ORDERED: ALB0.5V IH (19:04)
[2017-05-09] MEDS ORDERED: PRD20T PO (19:04)
[2017-05-09 19:30] VITALS: BP 129/91
== END 2017-05-09 19:30 | disposition home or self-care (01) ==
LOC: EDUNIT# 17:39 → ER 17:40
DX: J45.901 Unspecified asthma with (acute) exacerbation (principal); F12.10 Cannabis abuse, uncomplicated; Z87.891 Personal history of nicotine dependence
CPT/HCPCS: 94640; 99283

== ENCOUNTER 2017-05-12 15:51 | Observation (INO) | payer SELFPAY ==
[~2017-05-12] VITALS: Ht 162.6 cm; Wt 62.7 kg
[~2017-05-12 15:51] MED LIST changes: +ALB0.5V IH
[2017-05-12] MEDS ORDERED: RT-ALBUTEROL SULF 2.5 MG/3 ML PRE-MIX VIAL INH STA (16:47)
[2017-05-12] MEDS ORDERED: RT-IPRATROPIUM (ATROVENT) 0.5MG/2.5ML AMP IH ONE (17:00)
[2017-05-12] MEDS ORDERED: RT-ALBUTEROL/IPRATROPIUM 3 ML (DUONEB) VIAL ONE ×2 (18:11→21:35)
[2017-05-12] MEDS ORDERED: methylPREDNISolone 125 MG (Solu-MEDROL) VIAL IV STA (18:12)
[2017-05-12] MEDS ORDERED: NS IV 1000 ML 1,000 ML IV ONE (18:12)
[2017-05-12] MEDS ORDERED: RT-ALBUTEROL/IPRATROPIUM 3 ML (DUONEB) VIAL INH ONE (18:15)
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
--- NOTE | 2017-05-12 19:08 | Diagnostic Imaging Report ---
Clinical indication: Patient with trouble breathing. Patient has history of asthma. Exam: Chest x-ray PA and lateral views. Comparison: Chest x-ray dated 01/28/2017. Findings: There is stable multiple left rib deformities of the left hemithorax. Otherwise, lungs are clear and stable. There is no pleural effusion or pneumothorax. Pulmonary vasculature and cardiac silhouettes within normal limits. Impression: 1: Stable chest x-ray exam with no radiographic evidence of acute cardiopulmonary process. 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 Dictated by: Dictated on workstation # [id number]
[2017-05-12 19:15] VITALS: BP 11/74
[2017-05-12 19:17] LABS: BASOPHILS # (AUTO) 0.1 10^3/uL (0.0-0.1); BASOPHILS % (AUTO) 1 % (0-10); EOSINOPHILS # (AUTO) 0.5 10^3/uL (0.0-0.3); EOSINOPHILS % (AUTO) 6 % (0-10); HEMATOCRIT 34 % (35-52); HEMOGLOBIN 11.3 G/DL (11.5-16.0); LYMPHOCYTES # (AUTO) 2.6 X 10^3 (1.0-4.0); LYMPHOCYTES % (AUTO) 32 % (12-44); MEAN CORPUSCULAR HEMOGLOBIN 27 PG (25-34); MEAN CORPUSCULAR HGB CONC 34 G/DL (32-36); MEAN CORPUSCULAR VOLUME 80 FL (80-99); MEAN PLATELET VOLUME 8.6 FL (7.4-10.4); MONOCYTES # (AUTO) 0.8 X 10^3 (0.0-1.0); MONOCYTES % (AUTO) 10 % (0-12); NEUTROPHILS % (AUTO) 51 % (42-75); PLATELET COUNT 510 10^3/uL (130-400); RED BLOOD COUNT 4.21 10^6/uL (4.35-5.85); RED CELL DISTRIBUTION WIDTH 15.2 % (10.0-14.5)
[2017-05-12 19:21] LABS: ALANINE AMINOTRANSFERASE 260 U/L (0-55); ALBUMIN 3.7 GM/DL (3.2-4.5); ALKALINE PHOSPHATASE 83 U/L (40-136); BILIRUBIN,TOTAL 0.5 MG/DL (0.1-1.0); BUN/CREATININE RATIO 19; CALCIUM 8.9 MG/DL (8.5-10.1); CARBON DIOXIDE 17 MMOL/L (21-32); CHLORIDE 106 MMOL/L (98-107); CREATININE SERUM 0.63 MG/DL (0.60-1.30); GFR ESTIMATED > 60; GLUCOSE 92 MG/DL (70-105); MAGNESIUM 2.1 MG/DL (1.8-2.4); POTASSIUM 3.9 MMOL/L (3.6-5.0); SODIUM 138 MMOL/L (135-145); TOTAL PROTEIN 7.1 GM/DL (6.4-8.2)
[2017-05-12 20:53] VITALS: BP 126/79
[2017-05-12 21:52] VITALS: BP 124/79
[2017-05-12] MEDS ORDERED: RT-ALBUTEROL/IPRATROPIUM 3 ML (DUONEB) VIAL INH PRN (22:30)
[2017-05-13] MEDS: RT-ALBUTEROL/IPRATROPIUM 3 ML (DUONEB) VIAL INH SCH ×7 (01:03→22:32)
[2017-05-13 01:30] VITALS: BP 118/84
[2017-05-13 03:25] VITALS: BP 117/67
[2017-05-13] MEDS: NS IV 1000 ML 1,000 ML ONE ×2 (04:49→04:57)
[2017-05-13] MEDS: NS IV 1000 ML 1,000 ML IV SCH ×2 (04:50→12:11)
[2017-05-13] MEDS: methylPREDNISolone 125 MG (Solu-MEDROL) VIAL IV SCH ×3 (05:26→20:17)
[2017-05-13] MEDS ORDERED: INFLUENZA TRIvalent 2017-2018 0.5 ML/45 MCG SYR IM ONE (07:00)
[2017-05-13] MEDS ORDERED: CATHETER FLUSH 10 ML SYR IV PRN (07:00)
[2017-05-13 07:19] LABS: BASOPHILS % (AUTO) 0 % (0-10); EOSINOPHILS % (AUTO) 0 % (0-10); HEMATOCRIT 31 % (35-52); HEMOGLOBIN 10.4 G/DL (11.5-16.0); LYMPHOCYTES # (AUTO) 0.6 X 10^3 (1.0-4.0); LYMPHOCYTES % (AUTO) 12 % (12-44); MEAN CORPUSCULAR HEMOGLOBIN 27 PG (25-34); MEAN CORPUSCULAR HGB CONC 33 G/DL (32-36); MEAN CORPUSCULAR VOLUME 80 FL (80-99); MONOCYTES # (AUTO) 0.1 X 10^3 (0.0-1.0); MONOCYTES % (AUTO) 2 % (0-12); NEUTROPHILS # (AUTO) 4.1 X 10^3 (1.8-7.8); NEUTROPHILS % (AUTO) 86 % (42-75); PLATELET COUNT 497 10^3/uL (130-400); RED BLOOD COUNT 3.92 10^6/uL (4.35-5.85); RED CELL DISTRIBUTION WIDTH 14.9 % (10.0-14.5); WHITE BLOOD COUNT 4.8 10^3/uL (4.3-11.0)
[2017-05-13 07:38] LABS: ALANINE AMINOTRANSFERASE 223 U/L (0-55); ALBUMIN 3.6 GM/DL (3.2-4.5); ALKALINE PHOSPHATASE 77 U/L (40-136); BILIRUBIN,TOTAL 0.3 MG/DL (0.1-1.0); BUN/CREATININE RATIO 14; CALCIUM 8.9 MG/DL (8.5-10.1); CARBON DIOXIDE 21 MMOL/L (21-32); CHLORIDE 106 MMOL/L (98-107); CREATININE SERUM 0.64 MG/DL (0.60-1.30); GFR ESTIMATED > 60; GLUCOSE 202 MG/DL (70-105); POTASSIUM 3.8 MMOL/L (3.6-5.0); SODIUM 139 MMOL/L (135-145); TOTAL PROTEIN 6.5 GM/DL (6.4-8.2)
[2017-05-13 08:00] VITALS: BP 124/76
[2017-05-13] MEDS ORDERED: IPRA0.2S51 NEB (10:35)
[2017-05-13 12:00] VITALS: BP 119/75
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
[2017-05-13 15:42] VITALS: BP 143/86
[2017-05-13 20:29] VITALS: BP 130/72
[2017-05-13] MEDS: IBUPROFEN 600 MG (MOTRIN) TAB PO PRN (22:15)
[2017-05-14 00:30] VITALS: BP 136/75
[2017-05-14] MEDS: NS IV 1000 ML 1,000 ML IV SCH (01:00)
[2017-05-14] MEDS: RT-ALBUTEROL/IPRATROPIUM 3 ML (DUONEB) VIAL INH SCH ×6 (02:00→21:37)
[2017-05-14 04:32] VITALS: BP 130/71
[2017-05-14] MEDS: methylPREDNISolone 125 MG (Solu-MEDROL) VIAL IV SCH ×4 (05:04→17:25)
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
[2017-05-14] MEDS ORDERED: RT-ALBUTEROL SULF 2.5 MG/3 ML PRE-MIX VIAL ONE (06:27)
[2017-05-14] MEDS ORDERED: RT-IPRATROPIUM (ATROVENT) 0.5MG/2.5ML AMP IH ONE ×2 (06:28→06:45)
[2017-05-14] MEDS ORDERED: RT-ALBUTEROL SULF 2.5 MG/3 ML PRE-MIX VIAL INH ONE (06:45)
[2017-05-14] MEDS ORDERED: NS IV 1000 ML 1,000 ML IV SCH (06:45)
[2017-05-14 08:41] VITALS: BP 133/80
[2017-05-14] MEDS: LORATADINE (CLARITIN) 10 MG TAB PO SCH (09:18)
[2017-05-14] MEDS: FAMOTIDINE 20 MG (PEPCID) TABLET PO SCH ×2 (09:18→20:06)
--- NOTE | 2017-05-14 09:52 | Progress Note-Hospitalist ---
Subjective HPI/CC On Admission Date Seen by Provider: May 14, 2017 Time Seen by Provider: 09:48 The patient is a 31-year-old female who presented to the emergency room last evening with increasing dyspnea. She is asthmatic and has been for some years. Since October 21 she has had 5 ER visits and 3 admissions for this problem. At best she has only a nebulizer with albuterol to use. She has pled to being unable to afford prophylactic medications. She was given a prolonged nebulizer treatment and IV Solu-Medrol in the emergency room. This did not greatly improve her situation. Dr. Hallman felt she needed to stay however we were without beds. She had a prolonged period in the emergency room and then was transferred upstairs to the medicine floor. She reports she is somewhat better this morning but still feels tight. Subjective/Events-last exam She reports she is feeling much better than this morning. No complaints or concerns. Objective Exam Vital Signs Vital Sign - Last 12Hours 05/12/17 05/12/17 05/12/17 05/12/17 16:30 16:56 19:15 21:42 Temp 98.0 Pulse 113 Resp 18 B/P (MAP) 122/80 (94) Pulse Ox 93 O2 Delivery Room Air O2 Flow Rate 30.00 15.00 FiO2 30 Capillary Refill : Less Than 3 Seconds General Appearance: No Apparent Distress, WD/WN Respiratory: No Accessory Muscle Use, No Respiratory Distress, Wheezing ( diffuse) Cardiovascular: Regular Rate, Rhythm, No Murmur Neurologic/Psychiatric: Alert, Oriented x3, Normal Mood/Affect Assessment/Plan Assessment and Plan Assess & Plan/Chief Complaint Asthma Exacerbation Diagnosis/Problems Diagnosis/Problems (1) Status asthmaticus Status: Resolved Assessment & Plan: On Vapotherm Continue IV Steroids, scheduled Breathing Treatments Advair, Singulair, Claritin Titrate O2 to keep sats >90 Pulm consulted, appreciate recs Will consult social work to assistance with prescription assistance, appreciate help Qualifiers: Qualified Codes: J45.52 - Severe persistent asthma with status asthmaticus (2) Normocytic anemia Assessment & Plan: Mild, if drops below 10 start Iron (3) Prophylactic measure Assessment & Plan: Lovenox Saline Lock Reg MOIRA Varma MD May 14, 2017 09:52
[2017-05-14] MEDS: RT-ADVAIR HFA 115/21 MCG PER PUFF IH SCH ×2 (10:39→21:37)
[2017-05-14 12:00] VITALS: BP 111/60
[2017-05-14] MEDS: ENOXAPARIN 40 MG/0.4 ML (LOVENOX) SYR SC SCH (12:10)
[2017-05-14] MEDS: IBUPROFEN 600 MG (MOTRIN) TAB PO PRN (15:57)
[2017-05-14 16:00] VITALS: BP 142/77
[2017-05-14 20:00] VITALS: BP 144/71
[2017-05-14] MEDS ORDERED: MONTELUKAST 10 MG (SINGULAIR) TAB PO SCH (21:00)
[2017-05-15] VITALS: BP 119/70
[2017-05-15] MEDS: methylPREDNISolone 125 MG (Solu-MEDROL) VIAL IV SCH ×3 (00:29→12:20)
[2017-05-15] MEDS: RT-ALBUTEROL/IPRATROPIUM 3 ML (DUONEB) VIAL INH SCH ×4 (02:45→14:37)
--- NOTE | 2017-05-15 07:53 | Pulmonary Progress Note ---
Subjective Time Seen by Provider: 07:52 Subjective/Events-last exam pt appears much improved. Exam Exam Vital Signs Date Time Temp Pulse Resp B/P (MAP) Pulse Ox O2 Delivery O2 Flow Rate FiO2 05/15/17 02:45 96 Room Air 05/15/17 00:00 97.2 86 18 119/70 (86) 98 Room Air 05/14/17 21:37 Room Air 05/14/17 21:37 95 Room Air 05/14/17 20:00 97.7 104 20 144/71 (95) 96 Room Air 05/14/17 20:00 Room Air 05/14/17 16:00 98.4 99 20 142/77 (98) 96 Room Air 05/14/17 14:25 94 Room Air 05/14/17 12:00 97.7 86 14 111/60 (77) 98 Room Air 05/14/17 10:40 95 Vapotherm 8.00 28 05/14/17 08:41 97.6 110 20 133/80 (97) 97 Room Air 05/14/17 08:00 96 Vapotherm 8.00 I & O 05/15/17 07:00 Intake Total 3130 ml Output Total 2500 ml Balance 630 ml General Appearance: No Apparent Distress, WD/WN HEENT: Normal ENT Inspection Neck: Normal Inspection Respiratory: No Accessory Muscle Use, No Respiratory Distress, Wheezing (much improved ) Cardiovascular: Regular Rate, Rhythm, No Murmur Capillary Refill: Less Than 3 Seconds Gastrointestinal: non tender, soft Extremity: Normal Capillary Refill, Normal Inspection, Normal Range of Motion, Non Tender, No Calf Tenderness, No Pedal Edema Neurologic/Psychiatric: Alert, Oriented x3, Normal Mood/Affect Skin: Normal Color, Warm/Dry Lymphatic: No Adenopathy Assessment/Plan Assessment/Plan Acute Respiratory distress -Currently requiring high flow oxygen Uncontrolled asthmaAE -PT states she can not afford INH -Will continue to follow pt in my office in attempts to control asthma -Start advair -Solumedrol change to 40 Q 6 -Repeat hour long nebulizer this AM -start Selena Roachtec -Start IVF Medical noncompliance Pt was refusing SVN treatments yesterday and during the night. She has agreed not to refuse anymore treatments. Will consult for financial assistance and obtaining a PCP to follow with. Pt is not very honest patient. She told me she has not been refusing treatments however after discussing with RN and RT she has been refusing. IF pt does not require oxygen with ambulation or rest she can be discharged with prednisone taper, symbicort (samples given from my office), Rescue INH. I will follow up with her in 2 wks. 232 Clinical Quality Measures DVT/VTE Risk/Contraindication: Risk Factor Score Per Nursin RFS Level Per Nursing on Admit: 2=Moderate JOSÉ MIGUEL ALVA DO May 15, 2017 07:53
[2017-05-15] MEDS: LORATADINE (CLARITIN) 10 MG TAB PO SCH (08:36)
[2017-05-15] MEDS: ENOXAPARIN 40 MG/0.4 ML (LOVENOX) SYR SC SCH (08:36)
[2017-05-15] MEDS: FAMOTIDINE 20 MG (PEPCID) TABLET PO SCH (08:36)
[2017-05-15] MEDS: RT-ADVAIR HFA 115/21 MCG PER PUFF IH SCH (08:37)
[2017-05-15] MEDS ORDERED: PRED10TA22 PO (08:46)
[2017-05-15] MEDS ORDERED: MONT10TA24 PO (08:46)
[2017-05-15] MEDS ORDERED: LORA10TA7 PO (08:46)
[2017-05-15] MEDS ORDERED: BUDE10.2 IH (08:46)
[2017-05-15 08:48] VITALS: BP 136/65
[2017-05-15] MEDS ORDERED: RT-ALBUINH IH (10:31)
--- NOTE | 2017-05-15 12:53 | Discharge Summary-Hospitalist ---
Diagnosis/Chief Complaint Date of Admission May 13, 2017 at 2:57 am Date of Discharge Discharge Date: May 15, 2017 Admission Diagnosis Asthma in exacerbation. Discharge Diagnosis Asthma Exacerbation (1) Status asthmaticus Status: Resolved Assessment & Plan: Now on Room Air Will start prednisone taper for DC Marley Troy Claritin Pulkalyn consulted, appreciate recs Will consult social work to assistance with prescription assistance, appreciate help Scheduled follow up with [place] at [facility] on 05/22/17 at 1:00pm (2) Normocytic anemia Assessment & Plan: Mild (3) Prophylactic measure Assessment & Plan: Lovenox Saline Lock Reg Diet Discharge Summary Consultations Dr Andrade Discharge Physical Examination Allergies: Coded Allergies: No Known Drug Allergies (Unverified , 10/21/16) Vitals & I&Os Vital Signs Date Time Temp Pulse Resp B/P (MAP) Pulse Ox O2 Delivery O2 Flow Rate FiO2 05/15/17 11:13 95 Room Air 05/15/17 08:48 97.9 65 14 136/65 (88) 05/14/17 10:40 8.00 28 Hospital Course Pt was admitted to the hospital for acute asthma exacerbation. She originally needed high amounts of oxygen to maintain oxygenation (on Vapotherm) and IV steroids with multiple hour long treatments with nebulizers. She responded well to therapy and was eventually titrated off oxygen on day 2 of admission. She reported feeling much better and desired discharge today. She was set up with [facility] for follow up and social work was consulted for prescription assistance. Dr Andrade provided samples of Symbicort for her controllers. She was advised very strongly to keep this appointment with [facility] to help keep her asthma under control. Discharge Home Medications: Active Scripts Active Proventil Hfa (Albuterol Sulfate) 6.7 Gm Hfa.aer.ad 2 Puff IH Q6H PRN Loratadine 10 Mg Tablet 10 Mg PO DAILY Prednisone 10 Mg Tab.ds.pk 10 Mg PO DAILY Take 6 tabs(60mg)daily,decrease by 1 tab(10MG)daily. Symbicort 160-4.5 Mcg Inhaler (Budesonide/Formoterol Fumarate) 10.2 Gm Hfa.aer.ad 2 Puff IH BID Montelukast Sodium 10 Mg Tablet 10 Mg PO HS Reported Ipratropium Tabiona 0.2 Mg/1 Ml Solution 1 Vial NEB Q6H PRN Instructions to patient/family Please see electronic discharge instructions given to patient. Clinical Quality Measures DVT/VTE Risk/Contraindication: Risk Factor Score Per Nursin RFS Level Per Nursing on Admit: 2=Moderate Copy Copies To 1: JOSÉ MIGUEL ANDRADE DO; [facility]/Sim Problem Qualifiers (1) Status asthmaticus: Asthma severity: severe Asthma persistence: persistent Qualified Codes: J45.52 - Severe persistent asthma with status asthmaticus MOIRA DAHL MD May 15, 2017 12:53 pm
[2017-05-15 14:42] VITALS: BP 136/65
== END 2017-05-15 12:15 | disposition home or self-care (01) ==
LOC: EDUNIT# 15:51 → ER 15:53 → 4TH 20:43 → UNDOADMOB 20:59 → 4TH 05-13 02:57 → UNDOADMOB 05-13 02:57 → UNDODISOB 05-15 14:42
PROVIDERS: ADMIT Internal Medicine; ATTEND Internal Medicine
DX: J45.901 Unspecified asthma with (acute) exacerbation (principal); D64.9 Anemia, unspecified; R06.03 Acute respiratory distress; Z91.14 Patient's other noncompliance with medication regimen; Z79.891 Long term (current) use of opiate analgesic
CPT/HCPCS: 36415; 71046; 80053; 83735; 84703; 85025; 94640; 94644; 94760; 94761; 96361; 96374; G0378

== ENCOUNTER 2017-07-14 09:12 | Inpatient (IN) | payer SELFPAY ==
[~2017-07-14] VITALS: Ht 162.6 cm; Wt 62.7 kg
[~2017-07-14 09:12] MED LIST changes: +BUDE10.2 IH; +LORA10TA7 PO; +RT-ALBUINH IH
[2017-07-14] MEDS ORDERED: methylPREDNISolone 125 MG (Solu-MEDROL) VIAL IV STA (09:24)
[2017-07-14] MEDS ORDERED: DEXAMETHASONE 4 MG/ML SDV (DECADRON) IH ONE (09:30)
[2017-07-14] MEDS ORDERED: RT-ALBUTEROL/IPRATROPIUM 3 ML (DUONEB) VIAL INH ONE ×2 (09:30→10:30)
[2017-07-14 10:02] LABS: BASOPHILS % (AUTO) 1 % (0-10); EOSINOPHILS # (AUTO) 0.5 10^3/uL (0.0-0.3); EOSINOPHILS % (AUTO) 10 % (0-10); HEMATOCRIT 31 % (35-52); HEMOGLOBIN 9.9 G/DL (11.5-16.0); LYMPHOCYTES # (AUTO) 1.8 X 10^3 (1.0-4.0); LYMPHOCYTES % (AUTO) 34 % (12-44); MEAN CORPUSCULAR HEMOGLOBIN 26 PG (25-34); MEAN CORPUSCULAR HGB CONC 32 G/DL (32-36); MEAN CORPUSCULAR VOLUME 80 FL (80-99); MEAN PLATELET VOLUME 8.6 FL (7.4-10.4); MONOCYTES # (AUTO) 0.4 X 10^3 (0.0-1.0); MONOCYTES % (AUTO) 8 % (0-12); NEUTROPHILS # (AUTO) 2.5 X 10^3 (1.8-7.8); NEUTROPHILS % (AUTO) 47 % (42-75); PLATELET COUNT 661 10^3/uL (130-400); RED BLOOD COUNT 3.86 10^6/uL (4.35-5.85); RED CELL DISTRIBUTION WIDTH 14.8 % (10.0-14.5); WHITE BLOOD COUNT 5.2 10^3/uL (4.3-11.0)
[2017-07-14 10:24] LABS: BUN/CREATININE RATIO 19; CALCIUM 8.7 MG/DL (8.5-10.1); CARBON DIOXIDE 25 MMOL/L (21-32); CHLORIDE 104 MMOL/L (98-107); CREATININE SERUM 0.68 MG/DL (0.60-1.30); GFR ESTIMATED > 60; GLUCOSE 131 MG/DL (70-105); SODIUM 138 MMOL/L (135-145)
[2017-07-14] MEDS ORDERED: RT-ALBUTEROL SULF 2.5 MG/3 ML PRE-MIX VIAL ONE (10:35)
--- NOTE | 2017-07-14 10:42 | Diagnostic Imaging Report ---
INDICATION: Cough. Time of exam: 10:49 AM Correlation is made with prior study from 05/12/2017. The heart size is stable. Multiple left-sided rib deformities are stable. No infiltrates are seen. No effusion or pneumothorax is detected. IMPRESSION: Stable chest. No acute cardiopulmonary process is detected. Dictated by: Dictated on workstation # [id number]
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
[2017-07-14] MEDS ORDERED: cefTRIAXone INJECTION 1,000 MG in NS (IVPB) 100 ML IV ONE (12:00)
[2017-07-14 13:05] VITALS: BP 133/63
[2017-07-14] MEDS ORDERED: CATHETER FLUSH 10 ML SYR IV PRN (13:30)
[2017-07-14] MEDS: CATHETER FLUSH 10 ML SYR IV SCH (14:15)
[2017-07-14] MEDS ORDERED: RT-ALBUINH IH (14:40)
[2017-07-14] MEDS ORDERED: IBUP-30 PO (14:41)
[2017-07-14 15:42] VITALS: BP 133/63
[2017-07-14] MEDS ORDERED: INFLUENZA TRIvalent 2017-2018 0.5 ML/45 MCG SYR IM ONE (15:45)
[2017-07-14] MEDS ORDERED: RT-ALBUTEROL/IPRATROPIUM 3 ML (DUONEB) VIAL INH PRN (16:00)
[2017-07-14 16:58] VITALS: BP 135/78
[2017-07-14] MEDS: methylPREDNISolone 125 MG (Solu-MEDROL) VIAL IV SCH (17:22)
[2017-07-14] MEDS: RT-BUDESONIDE NEBS 0.5 MG/2ML (PULMICORT) AMP INH SCH (18:53)
[2017-07-14] MEDS: RT-ALBUTEROL/IPRATROPIUM 3 ML (DUONEB) VIAL INH SCH (18:53)
[2017-07-14 19:13] VITALS: BP 114/60
[2017-07-14 23:28] LABS: BILIRUBIN,URINE NEGATIVE (NEGATIVE); CLARITY,URINE CLEAR; COLOR,URINE YELLOW; GLUCOSE, URINE (UA) 4+ (NEGATIVE); KETONES,URINE NEGATIVE (NEGATIVE); LEUKOCYTE ESTERASE ,URINE NEGATIVE (NEGATIVE); NITRITE,URINE POSITIVE (NEGATIVE); PH,URINE 6.5 (5-9); PROTEIN,URINE 1+ (NEGATIVE); UROBILINOGEN,URINE NORMAL (NORMAL)
[2017-07-14 23:38] LABS: BACTERIA,URINE TRACE /HPF; TRICHOMONAS,URINE MODERATE /HPF
[2017-07-15] MEDS: methylPREDNISolone 125 MG (Solu-MEDROL) VIAL IV SCH ×3 (00:01→12:04)
[2017-07-15] MEDS: CATHETER FLUSH 10 ML SYR IV SCH ×3 (00:01→12:04)
[2017-07-15 00:32] VITALS: BP 130/63
[2017-07-15 04:38] VITALS: BP 124/54
[2017-07-15 06:22] LABS: BASOPHILS % (AUTO) 0 % (0-10); EOSINOPHILS % (AUTO) 0 % (0-10); HEMATOCRIT 28 % (35-52); HEMOGLOBIN 9.2 G/DL (11.5-16.0); LYMPHOCYTES # (AUTO) 0.6 X 10^3 (1.0-4.0); LYMPHOCYTES % (AUTO) 3 % (12-44); MEAN CORPUSCULAR HEMOGLOBIN 26 PG (25-34); MEAN CORPUSCULAR HGB CONC 32 G/DL (32-36); MEAN CORPUSCULAR VOLUME 79 FL (80-99); MEAN PLATELET VOLUME 8.8 FL (7.4-10.4); MONOCYTES # (AUTO) 0.2 X 10^3 (0.0-1.0); MONOCYTES % (AUTO) 1 % (0-12); NEUTROPHILS # (AUTO) 17.3 X 10^3 (1.8-7.8); NEUTROPHILS % (AUTO) 96 % (42-75); PLATELET COUNT 645 10^3/uL (130-400); RED BLOOD COUNT 3.58 10^6/uL (4.35-5.85); RED CELL DISTRIBUTION WIDTH 14.8 % (10.0-14.5)
[2017-07-15 06:59] LABS: ALANINE AMINOTRANSFERASE 74 U/L (0-55); ALBUMIN 3.5 GM/DL (3.2-4.5); ALKALINE PHOSPHATASE 69 U/L (40-136); BILIRUBIN,TOTAL 0.2 MG/DL (0.1-1.0); BUN/CREATININE RATIO 30; CALCIUM 8.6 MG/DL (8.5-10.1); CARBON DIOXIDE 24 MMOL/L (21-32); CHLORIDE 107 MMOL/L (98-107); GFR ESTIMATED > 60; GLUCOSE 157 MG/DL (70-105); POTASSIUM 4.2 MMOL/L (3.6-5.0); SODIUM 138 MMOL/L (135-145); TOTAL PROTEIN 6.2 GM/DL (6.4-8.2)
[2017-07-15] MEDS: RT-ALBUTEROL/IPRATROPIUM 3 ML (DUONEB) VIAL INH SCH ×2 (07:07→11:08)
[2017-07-15 07:08] LABS: BAND NEUTROPHILS 12 %; BASOPHILS % (MANUAL) 0 %; EOSINOPHILS % (MANUAL) 0 %; LYMPHOCYTES % (MANUAL) 4 %; MONOCYTES % (MANUAL) 0 %; NEUTROPHILS % (MANUAL) 84 %
[2017-07-15] MEDS: RT-BUDESONIDE NEBS 0.5 MG/2ML (PULMICORT) AMP INH SCH (07:08)
[2017-07-15 07:09] LABS: ELLIPT/OVALOCYTES SLIGHT
[2017-07-15 08:00] VITALS: BP 118/66
[2017-07-15 12:00] VITALS: BP 114/58
--- NOTE | 2017-07-15 12:17 | History & Physical-Hospitalist ---
History of Present Illness HPI/Chief Complaint The patient is a 32-year-old female who presented last night to the emergency room with complaints of asthma. The patient is well-known to this institution. She is been in the area 8 months and has had 9 ER visits and 3 admissions relative to asthma. She as before reports that she had run out of medication except for her nebulizer last week. She uses it 2 or 3 times daily. She has been instructed in the past that she continues at much more often than that if necessary. She has had several appointments made at [facility]. She states that she made it there once some months ago. Apparently we gave her a voucher switch allowed her to get her medications at [facility] for free. These have run out. She also smokes, despite admonishment to quit. She reports that she is doing much better this morning. Source: patient Exam Limitations: no limitations Date Seen 07/15/17 Time Seen by Provider: 12:12 Attending Physician Favio Rivas MD [facility] Referring Physician Date of Admission Jul 14, 2017 at 11:30 Home Medications & Allergies Home Medications Reviewed patient Home Medication Reconciliation performed by pharmacy medication reconciliations certified histologic technician and/or nursing. Patients Allergies have been reviewed. Allergies Allergies Coded Allergies No Known Drug Allergies (Unverified10/21/16) Past Tslzkph-Ttfodp-Pykmom Hx Past Med/Social Hx: Reviewed Nursing Past Med/Soc Hx Patient Social History Marrital Status: single Alcohol Use: Regular Use Number of Drinks Today: GG Alcohol Beverage of Choice: Whiskey Recreational Drug Use: Yes (THC, + IV METH USE) Smoking Status: Former Smoker Former Smoker, Quit: Jan 19, 2017 Type Used: Cigars, Cigarettes Physical Abuse Screen: No Sexual Abuse: No Recent Foreign Travel: No Contact w/other who traveled: No Recent Hopitalizations: Yes (ASTHMA, 04/2017) Recent Infectious Disease Expo: No Immunizations Up To Date Tetanus Booster (TDap): Unknown Pediatric: Yes Date of Pneumonia Vaccine: May 15, 2012 Seasonal Allergies Seasonal Allergies: Yes Past Medical History Respiratory: Asthma Currently Using CPAP: No Currently Using BIPAP: No : No Sexually Transmitted Disease: No HIV/AIDS: No Female Reproductive Disorders: Denies Are Your Blood Sugars Over 250: No Loss of Vision: Denies History of Blood Disorders: No Adverse Reaction to Blood [place]rera: No Family History Reviewed Nursing Family Hx Asthma 19 MOTHER G8 SISTER Diabetes mellitus maternal great-grandmother Hypertension materal grandmother Respiratory disorder 19 MOTHER G8 SISTER Review of Systems Constitutional: see HPI EENTM: no symptoms reported Respiratory: see HPI, cough, dyspnea on exertion, short of breath, wheezing Cardiovascular: no symptoms reported Gastrointestinal: no symptoms reported Genitourinary: no symptoms reported Musculoskeletal: no symptoms reported Skin: no symptoms reported Psychiatric/Neurological: No Symptoms Reported Physical Exam Physical Exam Vital Signs Vital Signs - First Documented 07/14/17 07/14/17 09:26 09:42 Temp 97.3 Pulse 99 Resp 20 B/P (MAP) 133/84 (100) Pulse Ox 98 O2 Delivery Room Air FiO2 96 Capillary Refill : Less Than 3 Seconds General Appearance: Mild Distress Eyes: Bilateral Eye Normal Inspection HEENT: Normal ENT Inspection Neck: Normal Inspection Respiratory: No Accessory Muscle Use, No Respiratory Distress, Wheezing ( scattered wheezing in both lungs) Gastrointestinal: Normal Bowel Sounds, No Organomegaly Back: Normal Inspection, No CVA Tenderness Extremity: Normal Capillary Refill, Normal Inspection, Normal Range of Motion, Non Tender, No Calf Tenderness, No Pedal Edema Neurologic/Psychiatric: Alert, Oriented x3, No Motor/Sensory Deficits, Normal Mood/Affect Skin: Normal Color, Warm/Dry Lymphatic: No Adenopathy Results Results/Procedures Labs Laboratory Tests 07/14/17 09:50 07/15/17 06:05 Patient resulted labs reviewed. Assessment/Plan Admission Diagnosis Asthma in exacerbation. 2.tobaccoism. 3.poor compliance Admission Status: Observation Clinical Quality Measures DVT/VTE Risk/Contraindication: Risk Factor Score Per Nursin RFS Level Per Nursing on Admit: 1=Low/No VTE PPX FAVIO RIVAS MD Jul 15, 2017 12:17
[2017-07-15] MEDS ORDERED: IBUPROFEN 600 MG (MOTRIN) TAB PO PRN (12:30)
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
[2017-07-15] MEDS ORDERED: PRD20T PO (15:46)
[2017-07-15] MEDS ORDERED: Prednisone (15:46)
--- NOTE | 2017-07-15 15:48 | Discharge Instructions ---
Discharge Instructions Patient Instructions Patient Instructions: Continue the use of your nebulizer. During an episode you may use the nebulizer as often as every 2 hours. A prednisone taper has been ordered and the prescription has been electronically sent to your pharmacy. [facility] to [facility] For: Decline in function Activity & Diet Discharge Diet: No Restrictions Activity as Tolerated: Yes KEERTHI RIVAS MD Jul 15, 2017 15:48
[2017-07-15] MEDS ORDERED: methylPREDNISolone 40 MG/ML (Solu-MEDROL) VIAL IV SCH (18:00)
[2017-07-15] MEDS ORDERED: RT-ALBUTEROL/IPRATROPIUM 3 ML (DUONEB) VIAL INH SCH (18:00)
[2017-07-15] MEDS ORDERED: MONTELUKAST 10 MG (SINGULAIR) TAB PO SCH (21:00)
[2017-07-16] MEDS ORDERED: FLUTICASONE NASAL SPRAY (FLONASE) 16 GM BTL NS SCH (09:00)
[2017-07-16] MEDS ORDERED: LORATADINE (CLARITIN) 10 MG TAB PO SCH (09:00)
== END 2017-07-15 16:45 | disposition home or self-care (01) | DRG 203 ==
LOC: EDUNIT# 09:12 → ER 09:16 → 4TH 11:30 → UNDOADMIN 11:30
PROVIDERS: ADMIT Internal Medicine; ATTEND Internal Medicine
DX: J45.901 Unspecified asthma with (acute) exacerbation (principal); F17.290 Nicotine dependence, other tobacco product, uncomplicated; Z91.19 Patient's noncompliance with other medical treatment and regimen
CPT/HCPCS: 36415; 71046; 80048; 80053; 81000; 84703; 85007; 85025; 85027; 94640; 94760; 96365; 96375

== ENCOUNTER 2017-11-29 16:15 | Emergency (ER) | payer SELFPAY ==
[~2017-11-29] VITALS: Ht 162.6 cm; Wt 62.7 kg
[~2017-11-29 16:15] MED LIST changes: -IPRA3AMP IH; -IPRA3AMP INH; +IPRA3AMP31 IH; +IPRA3AMP31 INH; +Prednisone
--- OUTSIDE RECORDS SUMMARY | 2017-11-29 16:21 | XMS REPORT ---
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 [id number] [id number] Jun, Dental examination Z01.20 IMMUNIZATIONS No Known Immunizations SOCIAL HISTORY Never Assessed REASON FOR VISIT PROPHY/BAUTISTA PLAN OF CARE VITAL SIGNS MEDICATIONS Unknown Medications RESULTS No Results PROCEDURES Procedure Date Ordered Result Body Site Billing Notes on claim July 03, 2017 INSTRUCTIONS MEDICATIONS ADMINISTERED No Known Medications
[2017-11-29] MEDS ORDERED: PRED5TAB PO (16:31)
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
[2017-11-29 16:45] VITALS: BP 140/88
== END 2017-11-29 16:45 | disposition home or self-care (01) ==
LOC: EDUNIT# 16:15 → ER 16:17
DX: L30.9 Dermatitis, unspecified (principal); J44.9 Chronic obstructive pulmonary disease, unspecified; Z79.51 Long term (current) use of inhaled steroids; Z79.52 Long term (current) use of systemic steroids; Z87.891 Personal history of nicotine dependence
CPT/HCPCS: 99282

== ENCOUNTER 2018-01-22 17:01 | Emergency (ER) | payer SELFPAY ==
[~2018-01-22] VITALS: Ht 162.6 cm; Wt 60.4 kg
[~2018-01-22 17:01] MED LIST changes: +PRED5TAB PO
[2018-01-22] MEDS ORDERED: HYDR-4226 PO (17:44)
[2018-01-22] MEDS ORDERED: AMOX500C2 PO (17:44)
[2018-01-22] MEDS ORDERED: KETOROLAC 60 MG/2 ML VIAL IM ONE (17:45)
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
[2018-01-22 18:19] VITALS: BP 177/99
== END 2018-01-22 18:19 | disposition home or self-care (01) ==
LOC: EDUNIT# 17:01 → ER 17:03
DX: K08.89 Other specified disorders of teeth and supporting structures (principal); J44.9 Chronic obstructive pulmonary disease, unspecified; Z79.51 Long term (current) use of inhaled steroids; Z79.52 Long term (current) use of systemic steroids; Z87.891 Personal history of nicotine dependence
CPT/HCPCS: 99284

== ENCOUNTER 2018-02-04 10:38 | Emergency (ER) | payer SELFPAY ==
[~2018-02-04] VITALS: Ht 162.6 cm; Wt 61.2 kg
[~2018-02-04 10:38] MED LIST changes: +HYDR-4226 PO
[2018-02-04] MEDS ORDERED: IPRA0.2S51 IH (10:53)
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
[2018-02-04] MEDS ORDERED: RT-ALBUTEROL/IPRATROPIUM 3 ML (DUONEB) VIAL INH ONE (11:00)
[2018-02-04] MEDS ORDERED: PRD20T PO (11:11)
[2018-02-04] MEDS ORDERED: predniSONE 20 MG TAB PO ONE (11:15)
[2018-02-04 11:32] VITALS: BP 117/88
== END 2018-02-04 11:32 | disposition home or self-care (01) ==
LOC: EDUNIT# 10:38 → ER 10:39
DX: J45.901 Unspecified asthma with (acute) exacerbation (principal); J44.9 Chronic obstructive pulmonary disease, unspecified; Z87.891 Personal history of nicotine dependence; Z79.51 Long term (current) use of inhaled steroids; Z79.52 Long term (current) use of systemic steroids
CPT/HCPCS: 94640; 99283

== ENCOUNTER 2018-03-16 16:20 | Emergency (ER) | payer SELFPAY ==
[~2018-03-16] VITALS: Ht 167.6 cm; Wt 56.7 kg
[2018-03-16] MEDS ORDERED: RT-ALBUTEROL/IPRATROPIUM 3 ML (DUONEB) VIAL INH ONE (16:30)
[2018-03-16] MEDS ORDERED: ALBU2.5V4 IH (16:33)
[2018-03-16] MEDS ORDERED: IPRA0.2S51 IH (16:33)
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
[2018-03-16 16:55] VITALS: BP 130/80
== END 2018-03-16 16:55 | disposition home or self-care (01) ==
LOC: EDUNIT# 16:20 → ER 16:21
DX: J45.909 Unspecified asthma, uncomplicated (principal); Z79.51 Long term (current) use of inhaled steroids; Z79.52 Long term (current) use of systemic steroids; Z87.891 Personal history of nicotine dependence; Z87.09 Personal history of other diseases of the respiratory system
CPT/HCPCS: 94640; 99282

== ENCOUNTER 2018-03-25 14:04 | Observation (INO) | payer OTHER ==
[~2018-03-25] VITALS: Ht 162.6 cm; Wt 61.4 kg
[2018-03-25] MEDS ORDERED: RT-ALBUTEROL SULF 2.5 MG/3 ML PRE-MIX VIAL ONE ×3 (14:10→21:07)
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
[2018-03-25] MEDS ORDERED: RT-ALBUTEROL/IPRATROPIUM 3 ML (DUONEB) VIAL ONE (14:20)
[2018-03-25] MEDS ORDERED: methylPREDNISolone 125 MG (Solu-MEDROL) VIAL IVP ONE (14:30)
[2018-03-25] MEDS ORDERED: NS IV 500 ML 500 ML IV SCH (14:30)
--- NOTE | 2018-03-25 15:31 | Diagnostic Imaging Report ---
PATIENT HISTORY: Difficulty breathing. TECHNIQUE: Two views of the chest. COMPARISON: 07/14/2017. FINDINGS: Redemonstrated is deformity of the left rib cage, which appears similar to the prior exam. No acute rib fracture is seen. No focal consolidation is seen. There is no pleural effusion or pneumothorax seen. The cardiomediastinal silhouette is normal in size. IMPRESSION: Stable deformity of the left chest with no acute pulmonary abnormality seen. Dictated by: Dictated on workstation # [id number]
[2018-03-25 15:39] LABS: BASOPHILS # (AUTO) 0.1 10^3/uL (0.0-0.1); BASOPHILS % (AUTO) 1 % (0-10); EOSINOPHILS # (AUTO) 0.3 10^3/uL (0.0-0.3); EOSINOPHILS % (AUTO) 6 % (0-10); HEMATOCRIT 37 % (35-52); HEMOGLOBIN 11.2 G/DL (11.5-16.0); LYMPHOCYTES % (AUTO) 34 % (12-44); MEAN CORPUSCULAR HEMOGLOBIN 22 PG (25-34); MEAN CORPUSCULAR HGB CONC 30 G/DL (32-36); MEAN CORPUSCULAR VOLUME 73 FL (80-99); MEAN PLATELET VOLUME 8.5 FL (7.4-10.4); MONOCYTES % (AUTO) 16 % (0-12); NEUTROPHILS # (AUTO) 2.5 X 10^3 (1.8-7.8); NEUTROPHILS % (AUTO) 43 % (42-75); PLATELET COUNT 508 10^3/uL (130-400); RED BLOOD COUNT 5.05 10^6/uL (4.35-5.85); RED CELL DISTRIBUTION WIDTH 16.5 % (10.0-14.5); WHITE BLOOD COUNT 5.8 10^3/uL (4.3-11.0)
[2018-03-25 16:02] LABS: ALANINE AMINOTRANSFERASE 156 U/L (0-55); ALBUMIN 3.7 GM/DL (3.2-4.5); ALKALINE PHOSPHATASE 88 U/L (40-136); BILIRUBIN,TOTAL 0.2 MG/DL (0.1-1.0); BUN/CREATININE RATIO 10; CALCIUM 8.7 MG/DL (8.5-10.1); CARBON DIOXIDE 19 MMOL/L (21-32); CHLORIDE 105 MMOL/L (98-107); CREATININE SERUM 0.63 MG/DL (0.60-1.30); GFR ESTIMATED > 60; GLUCOSE 88 MG/DL (70-105); SODIUM 135 MMOL/L (135-145); TOTAL PROTEIN 7.9 GM/DL (6.4-8.2)
[2018-03-25 17:15] VITALS: BP 126/73
[2018-03-25] MEDS ORDERED: NS IV 1000 ML 1,000 ML ONE (17:40)
[2018-03-25] MEDS: NS IV 1000 ML 1,000 ML IV SCH (17:45)
[2018-03-25] MEDS ORDERED: CATHETER FLUSH 10 ML SYR IV PRN (18:00)
[2018-03-25] MEDS ORDERED: RT-ALBUTEROL/IPRATROPIUM 3 ML (DUONEB) VIAL INH ONE (18:00)
[2018-03-25] MEDS ORDERED: methylPREDNISolone 125 MG (Solu-MEDROL) VIAL IV SCH (18:00)
[2018-03-25] MEDS ORDERED: FLU QUADRIvalent (5+ YOA) 2018-2019 (AFLURIA) 0.5 ML IM ONE (19:30)
[2018-03-25 20:35] VITALS: BP 130/62
[2018-03-25] MEDS ORDERED: RT-ALBUTEROL/IPRATROPIUM 3 ML (DUONEB) VIAL INH PRN (21:00)
[2018-03-25] MEDS: RT-ALBUTEROL/IPRATROPIUM 3 ML (DUONEB) VIAL INH SCH (21:16)
[2018-03-25] MEDS: methylPREDNISolone 125 MG (Solu-MEDROL) VIAL IV SCH (21:53)
[2018-03-26 00:22] VITALS: BP 122/62
[2018-03-26] MEDS: RT-ALBUTEROL/IPRATROPIUM 3 ML (DUONEB) VIAL INH SCH ×3 (01:28→10:42)
[2018-03-26 04:17] VITALS: BP 126/70
[2018-03-26] MEDS: NS IV 1000 ML 1,000 ML IV SCH (05:11)
[2018-03-26 06:29] LABS: BASOPHILS % (AUTO) 0 % (0-10); EOSINOPHILS % (AUTO) 0 % (0-10); HEMATOCRIT 32 % (35-52); HEMOGLOBIN 9.8 G/DL (11.5-16.0); LYMPHOCYTES # (AUTO) 0.6 X 10^3 (1.0-4.0); LYMPHOCYTES % (AUTO) 8 % (12-44); MEAN CORPUSCULAR HEMOGLOBIN 23 PG (25-34); MEAN CORPUSCULAR HGB CONC 31 G/DL (32-36); MEAN CORPUSCULAR VOLUME 73 FL (80-99); MEAN PLATELET VOLUME 8.3 FL (7.4-10.4); MONOCYTES # (AUTO) 0.2 X 10^3 (0.0-1.0); MONOCYTES % (AUTO) 2 % (0-12); NEUTROPHILS # (AUTO) 7.6 X 10^3 (1.8-7.8); NEUTROPHILS % (AUTO) 90 % (42-75); PLATELET COUNT 536 10^3/uL (130-400); RED BLOOD COUNT 4.35 10^6/uL (4.35-5.85); RED CELL DISTRIBUTION WIDTH 16.4 % (10.0-14.5); WHITE BLOOD COUNT 8.4 10^3/uL (4.3-11.0)
[2018-03-26 06:42] LABS: ANISOCYTOSIS SLIGHT; BAND NEUTROPHILS 2 %; ELLIPT/OVALOCYTES SLIGHT; EOSINOPHILS % (MANUAL) 0 %; HYPOCHROMASIA SLIGHT; LYMPHOCYTES % (MANUAL) 8 %; MICROCYTOSIS SLIGHT; MONOCYTES % (MANUAL) 0 %; NEUTROPHILS % (MANUAL) 88 %; POIKILOCYTOSIS SLIGHT; POLYCHROMASIA SLIGHT; ROULEAUX SLIGHT
[2018-03-26 06:49] LABS: ALANINE AMINOTRANSFERASE 130 U/L (0-55); ALBUMIN 3.7 GM/DL (3.2-4.5); ALKALINE PHOSPHATASE 79 U/L (40-136); BILIRUBIN,TOTAL 0.2 MG/DL (0.1-1.0); BUN/CREATININE RATIO 15; CALCIUM 8.4 MG/DL (8.5-10.1); CARBON DIOXIDE 18 MMOL/L (21-32); CHLORIDE 107 MMOL/L (98-107); CREATININE SERUM 0.67 MG/DL (0.60-1.30); GFR ESTIMATED > 60; GLUCOSE 186 MG/DL (70-105); POTASSIUM 4.4 MMOL/L (3.6-5.0); SODIUM 136 MMOL/L (135-145); TOTAL PROTEIN 7.2 GM/DL (6.4-8.2)
[2018-03-26 08:00] VITALS: BP 131/60
--- NOTE | 2018-03-26 08:13 | Diagnostic Imaging Report ---
INDICATION: Asthma exacerbation. TECHNIQUE: Single view chest 12:31 AM. CORRELATION STUDY: 03/25/2018 FINDINGS: Left chest wall deformity is again demonstrated. Given this, lung rose overall appear generally stable without definitive infiltrate. Heart size, mediastinum and vasculature overall within normal limits. IMPRESSION: 1. Stable chest demonstrate no acute abnormality. Dictated by: Dictated on workstation # [id number]
[2018-03-26] MEDS: methylPREDNISolone 125 MG (Solu-MEDROL) VIAL IV SCH (08:14)
[2018-03-26] MEDS ORDERED: IBUP-30 PO (10:30)
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
[2018-03-26] MEDS ORDERED: PRD50T PO (11:18)
[2018-03-26] MEDS ORDERED: RT-ALBUINH IH (11:18)
--- NOTE | 2018-03-26 11:20 | Discharge Instructions ---
Discharge Inst-[facility] Discharge Medications New, Converted or Re-Newed RX: Transmitted to Pharmacy New Medications: Albuterol Sulfate (Proair Hfa) 1 Puff Puff 2 PUFF IH Q4H PRN for SHORTNESS OF BREATH, #1 INHALER 0 Refills 1 PUFF = 90 MCG Prednisone (Prednisone) 50 Mg Tab 50 MG PO DAILY for 5 Days, #5 TAB 0 Refills Continued Medications: Albuterol Sulfate (Albuterol Sulfate) 2.5 Mg/3 Ml Vial.neb 2.5 MG IH Q4H PRN for SHORTNESS OF BREATH, #25 EA 2 Refills Ibuprofen (Advil) 200 Mg Tablet 600 MG PO TID PRN for PAIN-MILD, TAB Ipratropium [place] (Ipratropium [place]) 0.2 Mg/1 Ml Solution 0.2 MG IH Q4H PRN for SHORTNESS OF BREATH, #25 EA 2 Refills Patient Instructions Goal/Follow Up Appt: Follow up at [facility] on Mar 31 at 2:20 pm with SIERRA Burton. Patient Instructions: Proair and prednisone have been sent to the pharmacy at [facility], with instructions to voucher them if you cannot afford them. If you have difficulty picking them up, please ask the pharmacy to call the reimbursement liaison physician. Activity & Diet Discharge Diet: Regular Diet Orders-Post D/C & Referrals Pneu Vac Indicated: Yes Copy Copies To 1: SIERRA Burton BETHANY N MD Mar 26, 2018 11:03
[2018-03-26 12:36] VITALS: BP 131/60
== END 2018-03-26 11:19 | disposition home or self-care (01) ==
LOC: EDUNIT# 14:04 → ER 14:05 → UNDOADMOB 16:40 → 4TH 16:40 → UNDODISOB 03-26 12:35
PROVIDERS: ADMIT Family Medicine; ATTEND Family Medicine
DX: J45.901 Unspecified asthma with (acute) exacerbation (principal); R74.8 Abnormal levels of other serum enzymes; D50.9 Iron deficiency anemia, unspecified; Z87.891 Personal history of nicotine dependence
CPT/HCPCS: 36415; 71045; 80053; 85007; 85025; 85027; 94640; 94760